=== PATIENT | male | born 1960 | race Caucasian/White ===

== ENCOUNTER 2018-04-07 09:18 | Observation (INO) | payer OTHER, SELFPAY ==
[2018-03-31 10:08] VITALS: BP 137/84; PULSE 61; RESP 18; TEMP 36.4; O2SAT 94; BMI 36.2
--- NOTE | 2018-03-31 10:10 | EKG12_ITS ---
Test Reason : Blood Pressure : / mmHG Vent. Rate : 042 BPM Atrial Rate : 042 BPM P-R Int : 164 ms QRS Dur : 108 ms QT Int : 432 ms P-R-T Axes : 054 033 033 degrees QTc Int : 360 ms Marked sinus bradycardia Abnormal ECG Confirmed by BRODERICK RIZO, MARIE ([id number]), order editor JOHN WARE ([id number]) on 04/05/2018 2:58:14 PM Referred By: Rakesh Finley Confirmed By:MARIE VILLAFANA MD
[2018-03-31 11:18] LABS: Absolute Lymphocyte Count 1.89 X10^3/ul (0.83-4.51); Absolute Neutrophil Count 3.9 X10^3/uL (2.0-7.7); Basophil# 0.03 X10^3/uL; Basophil% 0.5 % (0-1); Eosinophil# 0.25 X10^3/uL; Eosinophils% 3.8 % (0-5); Hematocrit 47.7 % (40-54); Hemoglobin 16.4 g/dl (13.0-16.5); Lymphocyte # 1.89 X10^3/ul (4.0); Lymphocyte % 28.9 % (19-41); Mean Corp Hgb Conc 34.4 g/gl (32-36); Mean Platelet Vol. 10.8 fl (6.2-12.0); Monocyte# 0.43 X10^3/uL; Monocyte% 6.6 % (0-10); Neutrophil # 3.94 X10^3/uL (2.7-7.7); POSITIVE COUNT NO; POSITIVE DIFFERENTIAL NO; POSITIVE MORPHOLOGY NO; Platelet Count 152 K/mm3 (150-450); RBC Distribution Width CV 12.9 % (11.6-14.6); RBC Distribution Width SD 44.4 fl (35.1-43.9); Red Blood Count 4.97 M/mm3 (4.6-6.2); White Blood Count 6.6 K/mm3 (4.4-11.0)
[2018-03-31 11:41] LABS: Phosphorus 3.4 mg/dL (2.5-4.9)
[2018-03-31 11:48] LABS: Anion Gap 4 (5-15); BUN 16 mg/dL (7-18); BUN/Creat Ratio 16.9 RATIO (10-20); Calcium,Total 9.3 mg/dL (8.5-10.1); Chloride 103 mmol/L (98-107); Creatinine, Serum 0.95 mg/dL (0.70-1.30); EST Glomerular Filtration Rate 87 mL/min (>60); Est Glom Filt Rate - Afr Amer 105 mL/min (>60); Estimated Creatinine Clearance 91.37 ml/min; Glucose 103 mg/dL (74-106); Potassium 4.8 mmol/L (3.5-5.1); Sodium Level 138 mmol/L (136-145); Thyroid Stim Hormone (TSH) 1.97 uIU/mL (0.358-3.74)
[2018-04-07] VITALS (10 sets, daily range): BP systolic 125–133; BP diastolic 73–96; PULSE 53–74; RESP 14–18; TEMP 35.9–37.2; O2SAT 94–98; BMI 36.2
--- NOTE | 2018-04-07 | IMM_PTH ---
PATIENT: KARTHIKEYAN CLARK LOC: MS2 U#:[id number] AGE/SX: 58/M ROOM: [id number] RE04/07/[address]: Dr. Rakesh Finley MD : 1960 BED: 1 DIS: 04/07/2018 SPEC #: [id number] RECD: 04/11/18 12:16 STATUS: NATASHA REQ #: [id number] TUAN: 04/07/18 00:[address]: Rakesh Finley DEPT: IMMUNOHISTOCHEMISTRY RECD BY: Sheila Mendez ENTERED: 04/11/18 12:17 SP TYPE: IMMUNO OTHR DR: Dr. Vj White MD Tissues: Thyroid gland, NOS Procedures: HBME (initial) CD56 (add) CK19 (add) GAL-3 (add) HBME (add) PHYSICIAN & INSTITUTION [place] [id number] SPECIMEN INFORMATION: Tissue Source: Total thyroid Clinical Info: Left thyroid mass Specimen Number: [id number] #3 & 5 CPT code: 00086, 45792 x7 METHODOLOGY: Deparaffinized sections of prefer/formalin-fixed tissue or PAP/DQ stained slides are incubated with monoclonal/polyclonal antibodies/oligonucleotide probes. Localization is made via biotin free immunoperoxidase method. Appropriate controls are performed and reacted as expected. Results on target cell population are indicated in the following table: RESULTS: ANTIBODY / CLONE RESULT Block 3 HBME1 (HBME-1) positive CK19 (A53-B/A2.26) positive GAL3 (9C4) positive CD56 (123C3.D5) negative Block 5 HBME1 (HBME-1) positive CK19 (A53-B/A2.26) positive GAL3 (9C4) positive CD56 (123C3.D5) negative These tests were developed and their performance characteristics determined by [facility]. They may not have been cleared or approved by the U.S. Food and Drug Administration. The FDA has determined that such clearance or approval is not necessary. INTERPRETATION: Thyroid, total thyroidectomy: Right lobe of thyroid: Papillary microcarcinoma. Left lobe of thyroid: Papillary microcarcinoma. AM:joe 04/14/18 Case has been reviewed in consultation with Dr. Ibarra who concurs with the above diagnosis. IDC:[email or web address]
--- NOTE | 2018-04-07 07:15 | THYROID_PTH ---
PATIENT: KARTHIKEYAN CLARK LOC: MS2 U#:[id number] AGE/SX: 58/M ROOM: [id number] RE04/07/[address]: Dr. Rakesh Finley MD : 1960 BED: 1 DIS: 04/07/2018 SPEC #: [id number] RECD: 04/07/18 10:51 STATUS: NATASHA PORTILLO #: [id number] TUAN: 04/07/18 07:[address]: Rakesh Finley DEPT: SURGICAL PATHOLOGY RECD BY: Karthikeyan León ENTERED: 04/07/18 12:11 SP TYPE: THYROID OTHR DR: Dr. Vj White MD Tissues: Thyroid gland, NOS Procedures: Surgery Specimen Level V HEADER OPERATION: Total thyroidectomy PRE-OP DIAGNOSIS: Left thyroid mass TISSUE SUBMITTED: Total thyroid ? suture in left lobe MICROSCOPIC DIAGNOSIS Thyroid, total thyroidectomy: Right lobe of thyroid: Colloid nodules with adenomatous and degenerative change. Incidental papillary microcarcinoma (3.3 mm in greatest dimension). Two out of two lymph nodes with no pathologic change. Left lobe of thyroid: Colloid nodules with adenomatous and degenerative change. Incidental papillary microcarcinoma (2.4 mm in greatest dimension). AM:joe 04/14/18 COMMENT Papillary microcarcinomas with follicular architecture and classic cytomorphology are present in sections of the right lobe and the left lobe. Both microcarcinomas are contained with the thyroid parenchyma. No extension to the inked surgical margins is identified. There is no evidence of angiolymphatic invasion. Immunohistochemistry ([id number]) supports the above diagnosis. Case has been reviewed in consultation with Dr. Ibarra who concurs with the above diagnosis. IDC:SJ MICROSCOPIC DESCRIPTION Slides are reviewed. GROSS DESCRIPTION Received in fixative is one container labeled with the patient's name and designated total thyroid, suture in left lobe. The specimen consists of a total thyroidectomy specimen weighing 34 gm. The right lobe measures 3.5 x 1.5 x 1 cm. The left lobe measures 6 x 4 x 3.5 cm and the isthmus measures 1.5 x 0.5 x 0.3 cm. No external parathyroid tissue is identified. The specimen is inked as follows: anterior surface right lobe ? blue, isthmus ? yellow and left lobe ? green, posterior surface right lobe, left lobe and isthmus ? black. Sections of the isthmus do not reveal any mass lesion. Sections of the right lobe reveal a minute bernstein-white nodule in the lower portion measuring 0.1 cm in greatest dimension. Sections of the left lobe reveal a bernstein, focally hemorrhagic nodule occupying 90% of the lobe measuring 5 x 4 x 3 cm. A focal area of calcification is also noted. No distinct capsule is identified around this nodule. Software Architect sections are submitted as follows: 1 ? isthmus, 2 & 3 ? right lobe (2 containing superior half of the right lobe and 3 containing inferior half of the right lobe, 4-12 ? left lobe (4 containing most superior portion and 12 containing most inferior portion; cassettes 10 & 11 contain the calcified portion of the nodule and submitted after decalcification.) / ZACKERY:joe 04/08/18 TC:0 CPT: 62338
--- NOTE | 2018-04-07 07:18 | PCM.DC.GS ---
Discharge Diet: Light diet - advance as tolerated - if you have questions about your diet instructions, please talk to you doctor. Discharge Activity: May Not Drive - for 1 week or while taking narcotic pain medicine. May shower in (days): 1 Lifting Restrictions: 10 pounds Call your doctor if your incision/area has: Continuous Slow Oozing, Sudden Increased Bleeding, Increased Pain/ Swelling, Increased Redness, Foul Smelling Discharge Call your doctor if you observe: Fever of 101 or Higher Suture Line Care: Avoid Pulling/Pushing, Avoid Pinching/Bending Additional Dressing/Incision Instructions:: You may cover the incision with a gauze dressing to protect from irritation or clothing. The surgical glue will wear off over 1-2 weeks. Allergies/Adverse Reactions: Allergies codeine Adverse Reaction (Verified 04/07/18 05:58) swelling in hands Medications to take at Discharge aspirin 81 mg tablet,delayed release 81 mg PO QHS 02/28/18 cetirizine 10 mg capsule 10 mg PO QDAY 02/28/18 losartan 100 mg-hydrochlorothiazide 12.5 mg tablet 1 tab PO QDAY 02/28/18 minocycline 100 mg capsule 100 mg PO BID 02/28/18 Red Yeast Rice 600 mg PO BID 03/31/18 Saw/Vit E/Sod Whitney/Lyc/Beta/Pyg [Prostate Health Caplet] 1 each PO BID 03/31/18 Hydrocodone Bitart/Apap 5-325 [[place] 5MG-325MG] 1 tablet PO Q4H PRN PRN 3 Days #8 tablet 04/07/18 Levothyroxine [Synthroid] 100 mcg PO DAILY #90 tab 04/07/18 The following prescriptions were given: Hydrocodone Bitart/Apap 5-325 [[place] 5MG-325MG] 1 tablet PO Q4H PRN PRN 3 Days #8 tablet PRN Reason: Pain Levothyroxine [Synthroid] 100 mcg PO DAILY #90 tab Primary Care Physician: Vj White MD [Primary Care Provider] - Test Results: Test results from this visit will be discussed in further detail at your follow-up appointment, if applicable. Please Follow Up With: Rakesh Finley MD - [phone] When: Call to make an appointment to be seen in about 10 days.
[2018-04-07] MEDS: Ondansetron 4 MG/2 ML Vial (07:45)
[2018-04-07] MEDS: Bupivacaine Mpf 0.5% 30 ML VIAL OPERA.SITE (09:10)
--- NOTE | 2018-04-07 09:24 | PCM.OPRPT ---
Problem List (1) Left thyroid nodule Status: Acute Report of Operation Date of Procedure: 04/07/18 Pre-Operative Diagnosis: Left thyroid mass Post-Operative Diagnosis: Left thyroid mass Surgery/Procedure Performed:: Total thyroidectomy Description of Surgical Findings:: Timeout and informed consent was obtained. 58-year-old gentleman was taken the operating placement table underwent general endotracheal intubation anesthesia. The neck was carefully supported. The neck was sterilely prepped and draped. A suprasternal transverse incision was created. Electrocautery was used to make dissected down through the substance tissue. Platysmal flaps are raised. Strap muscles on the left were transected with harmonic scalpel. This gave visualization to the dramatically enlarged left lobe of thyroid. Dissection was initiated superiorly as this gave best visualization. Using careful blunt dissection with hemostats and mosquitoes and Harmonic Scalpel I dissected free the superior pole. This actually proceeded quite expeditiously. Vessels were secured with hemoclips antibiotic scalpel indicated. Then I addressed the inferior pole. The inferior parathyroid rapidly identified and protected. The gland could then be rotated anteriorly in the middle thyroidal vein was secured. This then allowed me to completely rotate the gland dissect directly on the posterior aspect of the gland. The course of the recurrent laryngeal nerve was identified and carefully protected. Informed over the very tight ligament of Wilcox as it was transected and the gland was lifted off the anterior surface of the trachea. Hemostasis was very nicely intact all structures appear to be intact. Inspection I was performed of the right lobe of thyroid which is markedly diminutive. It is of note that the thyroid had a diffusely abnormal coloration to it a darker brown to almost black. It appeared to have a fluctuant fluid like character but there is no fluid that emanated. There is no evidence of any adenopathy that could be palpated or visualized. The right lobe was markedly diminished. Again the superior pole was rapidly identified and easily dissected free. The parathyroid inferiorly on the right is identified and protected the inferior pole was dissected free the gland was dissected anteriorly and it became very apparent that the right lobe was very diminutive in size. I was able to easily see the ligament of Wilcox transect this and elevate that gland off of the anterior surface of the trachea. Suture was placed in the superior aspect of the left lobe. There is no evidence of adherent parathyroids. The neck now was again carefully inspected. I did not see any remnants of any thyroid nor any gross adenopathy. Fibular was placed in each side of the neck. Left strap muscles approximated [id number] sutures of 3-0 Vicryl. The strap muscles proximally midline with 3-0 Vicryl. The Pitocin was approximately the same. The skin edges proximate interrupted 5-0 Vicryl subdermal stitches. The leni-incisional no areas anesthetized with 10 cc of 0.5% Marcaine. Surgical glue was applied followed by Telfa and tape dressings. Sponge and instrument and needle count were reported to the surgeon be correct. Blood loss was minimal. He tolerated the procedure well was taken to the recovery area in satisfactory condition without apparent complication. Specimen includes total thyroid. Drains none. Blood loss minimal. Rakesh Finley M.D., F.A.C.S. Type of Anesthesia:: General Anesthesiologist: Chicho Flores
[2018-04-07] MEDS: Morphine 2 MG/ML Syringe IV ×2 (11:55→13:50)
[2018-04-07] MEDS: HYDROcodone Bitartrate/Apap 5/325 Tablet PO (15:38)
--- NOTE | 2018-04-07 17:12 | PCM.PN.SRG ---
Subjective: Pt notes some slight hematuria There was no anticoagulation and no bladder intervention Voice strong and clear - Physical Exam HEENT: - - neck: supple, NT Vital Signs Temp Pulse Resp BP Pulse Ox 99.0 F 72 18 125/73 H 98 04/07/18 15:53 04/07/18 15:53 04/07/18 15:53 04/07/18 15:53 04/07/18 15:53 Oxygen Flow Rate (L/min) 2 Oxygen Delivery Method Room Air Weight: 259 lb 14.8 oz Body Mass Index (BMI) 36.2 Intake and Output for Last 24 Hours 04/05/18 04/06/18 04/07/18 23:59 23:59 23:59 Intake Total 2200 / 2200 Output Total 275 / 275 Balance 1925 / 1925 Laboratory Tests Past 24 Hrs 04/07/18 15:56 Calcium 9.0 Medical Necessity - Tobacco Use Smoking Status: Current some day smoker Assessment/Plan All Active Problems (Last Reviewed 03/31/18 @ 08:53 by Marta Segura) Left thyroid nodule (Acute) Hx of colonoscopy (Acute) Hx of wisdom tooth extraction (Acute) Hx of vasectomy (Acute) Mixed hyperlipidemia (Acute) Thyromegaly (Acute) Hypothyroidism (Acute) Calcium 9.0 Ready for discharge Will check UA for unrelated complaint to surgery Pt ready for discharge.
[2018-04-07 18:02] LABS: Color, Urine Yellow (Yellow); Glucose, Dipstick Normal (Normal); Ketone-Dipstick 5 mg/dl (Negative); Leukocyte Esterase-Dipstick 25 /ul (Negative); Nitrite-Dipstick Negative (Negative); Occult Blood-Urine 250 /ul (Negative); Protein-Dipstick 15 mg/dl (Negative); Specific Gravity, Urine 1.025 (1.002-1.030); Urine Bilirubin Dipstick Negative (Negative); Urine Clarity Sl. Cloudy (Clear); Urine Urobilinogen Normal (Normal)
== END 2018-04-07 18:02 | disposition home or self-care (01) ==
LOC: MS2 04-12 10:23
PROVIDERS: Anesthesiology; Admitting Provider Surgery; Family Provider Family Medicine; PCP Family Medicine; Visit Provider Surgery
PROC: (CPT 60240; principal; 2018-04-07 07:00)
DX: C73 Malignant neoplasm of thyroid gland (principal); E78.2 Mixed hyperlipidemia; E03.9 Hypothyroidism, unspecified; K21.9 Gastro-esophageal reflux disease without esophagitis; Z79.899 Other long term (current) drug therapy; Z79.82 Long term (current) use of aspirin; R00.1 Bradycardia, unspecified; I10 Essential (primary) hypertension; F17.200 Nicotine dependence, unspecified, uncomplicated
CPT/HCPCS: 60240; 36415; 80048; 81002; 82310; 84100; 84443; 85025; 88307; 88341; 88342; 93005; 96374; 96376; 99218; J7120; G0378; G0379; J2405

== ENCOUNTER → 2018-04-15 13:56 | Outpatient (CLI) | payer OTHER, SELFPAY ==
[2018-04-15 14:01] LABS: Bacteria 0 SEEN /hpf (None Seen); Mucous, Urine 0 SEEN /hpf (<or=2+); Red Blood Cells-Urine 0 SEEN /hpf (0-5); Squamous Epithelial Cells - UA 0 SEEN /hpf (0-5); White Blood Cells 0 SEEN /hpf (0-5)
[2018-04-15 15:06] LABS: Color, Urine Yellow (Yellow); Glucose, Dipstick Normal (Normal); Ketone-Dipstick Negative (Negative); Leukocyte Esterase-Dipstick 25 /ul (Negative); Nitrite-Dipstick Negative (Negative); Occult Blood-Urine Negative /ul (Negative); Protein-Dipstick Negative (Negative); Specific Gravity, Urine 1.015 (1.002-1.030); Urine Bilirubin Dipstick Negative (Negative); Urine Clarity Clear (Clear); Urine Urobilinogen Normal (Normal)
== END ==
PROVIDERS: Family Provider Family Medicine; PCP Family Medicine; Visit Provider Surgery
DX: R31.9 Hematuria, unspecified (principal)
CPT/HCPCS: 81001

== ENCOUNTER → 2018-04-18 13:29 | Outpatient (CLI) | payer OTHER, SELFPAY ==
[2018-04-18 14:29] LABS: Calcium,Total 9.5 mg/dL (8.5-10.1)
[2018-04-20 11:55] LABS: Anti-Thyroglobulin AB < 1.0 IU/mL (0.0-0.9)
== END ==
PROVIDERS: Physician Assistant; Family Provider Family Medicine; PCP Family Medicine; Visit Provider Surgery
DX: E03.9 Hypothyroidism, unspecified (principal)
CPT/HCPCS: 36415; 82310; 84432; 86800

== ENCOUNTER → 2018-05-19 14:06 | Outpatient (CLI) | payer OTHER, SELFPAY | PROVIDERS: Family Provider Family Medicine; PCP Family Medicine; Visit Provider Physician Assistant | DX: C73 Malignant neoplasm of thyroid gland (principal) | CPT/HCPCS: 36415; 84443 ==

== ENCOUNTER → 2018-07-06 14:43 | Outpatient (CLI) | payer OTHER, SELFPAY ==
[2018-07-06 16:06] LABS: Free T3 3.1 pg/mL (2.18-3.98); Thyroid Stim Hormone (TSH) 1.63 uIU/mL (0.358-3.74)
[2018-07-11 12:01] LABS: Anti-Thyroglobulin AB < 1.0 IU/mL (0.0-0.9); Thyroglobulin, Serum Qt. < 0.1 ng/mL (1.4-29.2); Thyroid Peroxidase AB 9 IU/mL (0-34)
== END ==
PROVIDERS: Family Provider Family Medicine; PCP Family Medicine; Referring Provider Internal Medicine Endocrinology, Diabetes & Metabolism; Visit Provider Internal Medicine Endocrinology, Diabetes & Metabolism
DX: E03.9 Hypothyroidism, unspecified (principal)
CPT/HCPCS: 36415; 84432; 84439; 84443; 84481; 86376; 86800

== ENCOUNTER → 2018-11-09 16:04 | Outpatient (CLI) | payer OTHER, SELFPAY ==
[2018-04-07 05:48] VITALS: BMI 36.2
== END ==
PROVIDERS: Family Provider Family Medicine; PCP Family Medicine; Referring Provider Internal Medicine Endocrinology, Diabetes & Metabolism; Visit Provider Internal Medicine Endocrinology, Diabetes & Metabolism
DX: E03.9 Hypothyroidism, unspecified (principal)
CPT/HCPCS: 36415; 84443

== ENCOUNTER → 2019-01-10 09:52 | Outpatient (CLI) | payer OTHER, SELFPAY ==
[2018-04-07 05:48] VITALS: BMI 36.2
[2019-01-10 11:04] LABS: Hemoglobin A1c 5.6 % (4.2-6.3)
[2019-01-10 11:22] LABS: ALB/GLOB Ratio 1.1 RATIO (0.9-2.4); AST(SGOT) 24 U/L (15-37); Alanine Aminotransfer ALT/SGPT 39 U/L (16-61); Albumin, Serum 3.7 g/dL (3.2-5.0); Alkaline Phosphatase 52 U/L (45-117); Anion Gap 9 (5-15); BUN 20 mg/dL (7-18); Chloride 104 mmol/L (98-107); Cholesterol 188 mg/dL (200); EST Glomerular Filtration Rate 82 mL/min (>60); Est Glom Filt Rate - Afr Amer 99 mL/min (>60); Globulin 3.3 g/dL (2.2-4.2); Glucose 105 mg/dL (74-106); High Density Lipoprotein 51 mg/dL; Potassium 3.8 mmol/L (3.5-5.1); Sodium Level 139 mmol/L (136-145); Thyroid Stim Hormone (TSH) 7.67 uIU/mL (0.358-3.74); Triglycerides 107 mg/dL; Very Low Density Lipoprotein 21 mg/dL (5-40)
[2019-01-10 12:09] LABS: Microalbumin,Random Urine 7.6 mg/L (NO RANGE EST.)
== END ==
PROVIDERS: Family Provider Family Medicine; PCP Family Medicine; Referring Provider Family Medicine; Visit Provider Family Medicine
DX: I10 Essential (primary) hypertension (principal); R73.01 Impaired fasting glucose; E03.9 Hypothyroidism, unspecified; E78.2 Mixed hyperlipidemia
CPT/HCPCS: 36415; 80053; 80061; 82043; 83036; 84443

== ENCOUNTER → 2019-05-25 11:13 | Outpatient (CLI) | payer OTHER, SELFPAY ==
[2018-04-07 05:48] VITALS: BMI 36.2
[2019-05-25 12:18] LABS: T4 Free Direct 1.36 ng/dL (0.76-1.46); Thyroid Stim Hormone (TSH) 0.85 uIU/mL (0.358-3.74)
== END ==
PROVIDERS: Family Provider Family Medicine; PCP Family Medicine; Referring Provider Family Medicine; Visit Provider Family Medicine
DX: E03.9 Hypothyroidism, unspecified (principal)
CPT/HCPCS: 36415; 84439; 84443

== ENCOUNTER → 2019-12-26 10:21 | Outpatient (CLI) | payer OTHER, SELFPAY ==
[2018-04-07 05:48] VITALS: BMI 36.2
[2019-12-26 11:34] LABS: ALB/GLOB Ratio 1.2 RATIO (0.9-2.4); AST(SGOT) 25 U/L (15-37); Alanine Aminotransfer ALT/SGPT 37 U/L (16-61); Albumin, Serum 3.8 g/dL (3.2-5.0); Alkaline Phosphatase 54 U/L (45-117); Anion Gap 4 (5-15); BUN 13 mg/dL (7-18); BUN/Creat Ratio 12.4 RATIO (10-20); Calcium,Total 9.4 mg/dL (8.5-10.1); Chloride 106 mmol/L (98-107); Cholesterol 189 mg/dL (200); Creatinine, Serum 1.05 mg/dL (0.70-1.30); EST Glomerular Filtration Rate 77 mL/min (>60); Est Glom Filt Rate - Afr Amer 93 mL/min (>60); Globulin 3.2 g/dL (2.2-4.2); Glucose 105 mg/dL (74-106); High Density Lipoprotein 47 mg/dL; Potassium 3.9 mmol/L (3.5-5.1); Sodium Level 139 mmol/L (136-145); T4 Free Direct 1.24 ng/dL (0.76-1.46); Thyroid Stim Hormone (TSH) 0.49 uIU/mL (0.358-3.74); Triglycerides 119 mg/dL; Very Low Density Lipoprotein 24 mg/dL (5-40)
== END ==
PROVIDERS: PCP Family Medicine; Referring Provider Family Medicine; Visit Provider Family Medicine
DX: E03.9 Hypothyroidism, unspecified (principal); I10 Essential (primary) hypertension; F51.04 Psychophysiologic insomnia; E78.2 Mixed hyperlipidemia
CPT/HCPCS: 36415; 80053; 80061; 84439; 84443

== ENCOUNTER → 2020-07-10 15:12 | Outpatient (CLI) | payer OTHER, SELFPAY ==
[2018-04-07 05:48] VITALS: BMI 36.2
[2020-07-10 16:24] LABS: ALB/GLOB Ratio 1.1 RATIO (0.9-2.4); AST(SGOT) 31 U/L (15-37); Alanine Aminotransfer ALT/SGPT 46 U/L (16-61); Albumin, Serum 3.7 g/dL (3.2-5.0); Alkaline Phosphatase 54 U/L (45-117); Anion Gap 6 (5-15); BUN 16 mg/dL (7-18); BUN/Creat Ratio 17.1 RATIO (10-20); Calcium,Total 9.1 mg/dL (8.5-10.1); Chloride 104 mmol/L (98-107); Cholesterol 191 mg/dL (200); Creatinine, Serum 0.93 mg/dL (0.70-1.30); EST Glomerular Filtration Rate 88 mL/min (>60); Est Glom Filt Rate - Afr Amer 106 mL/min (>60); Globulin 3.3 g/dL (2.2-4.2); Glucose 94 mg/dL (74-106); High Density Lipoprotein 50 mg/dL; Sodium Level 138 mmol/L (136-145); Triglycerides 139 mg/dL; Very Low Density Lipoprotein 28 mg/dL (5-40)
== END ==
PROVIDERS: PCP Family Medicine; Visit Provider Family Medicine
DX: E03.9 Hypothyroidism, unspecified (principal); E78.2 Mixed hyperlipidemia; I10 Essential (primary) hypertension; F51.04 Psychophysiologic insomnia
CPT/HCPCS: 36415; 80053; 80061

== ENCOUNTER → 2021-01-08 10:39 | Outpatient (CLI) | payer OTHER, SELFPAY ==
[2018-04-07 05:48] VITALS: BMI 36.2
[2021-01-08 12:01] LABS: Hemoglobin A1c 5.6 % (3.8-5.6)
[2021-01-08 12:17] LABS: ALB/GLOB Ratio 1.1 RATIO (0.9-2.4); AST(SGOT) 28 U/L (15-37); Alanine Aminotransfer ALT/SGPT 59 U/L (16-61); Albumin, Serum 3.6 g/dL (3.2-5.0); Alkaline Phosphatase 47 U/L (45-117); Anion Gap 4 (5-15); BUN 14 mg/dL (7-18); BUN/Creat Ratio 14.4 RATIO (10-20); Chloride 107 mmol/L (98-107); Cholesterol 171 mg/dL (200); Creatinine, Serum 0.98 mg/dL (0.70-1.30); EST Glomerular Filtration Rate 84 mL/min (>60); Est Glom Filt Rate - Afr Amer 101 mL/min (>60); Globulin 3.3 g/dL (2.2-4.2); Glucose 108 mg/dL (74-106); High Density Lipoprotein 42 mg/dL; PSA,Total - Annual Screen 2.35 ng/mL (0.00-4.00); Potassium 3.9 mmol/L (3.5-5.1); Protein, Total 6.9 g/dL (6.4-8.2); Sodium Level 141 mmol/L (136-145); T4 Free Direct 1.27 ng/dL (0.76-1.46); Thyroid Stim Hormone (TSH) 2.25 uIU/mL (0.358-3.74); Triglycerides 119 mg/dL; Very Low Density Lipoprotein 24 mg/dL (5-40)
== END ==
PROVIDERS: PCP Family Medicine; Referring Provider Family Medicine; Visit Provider Family Medicine
DX: I10 Essential (primary) hypertension (principal); F51.04 Psychophysiologic insomnia; E03.9 Hypothyroidism, unspecified; E78.2 Mixed hyperlipidemia; L81.9 Disorder of pigmentation, unspecified
CPT/HCPCS: 80053; 80061; 83036; 84153; 84439; 84443; G0103

== ENCOUNTER → 2021-07-14 09:02 | Outpatient (CLI) | payer OTHER, SELFPAY ==
[2021-07-14 10:29] LABS: Hemoglobin A1c 5.7 % (3.8-5.6)
[2021-07-14 10:45] LABS: ALB/GLOB Ratio 0.8 RATIO (0.9-2.4); AST(SGOT) 29 U/L (15-37); Alanine Aminotransfer ALT/SGPT 67 U/L (16-61); Albumin, Serum 3.1 g/dL (3.2-5.0); Alkaline Phosphatase 53 U/L (45-117); Anion Gap 4 (5-15); BUN 12 mg/dL (7-18); Calcium,Total 9.2 mg/dL (8.5-10.1); Chloride 107 mmol/L (98-107); Cholesterol 202 mg/dL (200); Creatinine, Serum 0.92 mg/dL (0.70-1.30); EST Glomerular Filtration Rate 89 mL/min (>60); Est Glom Filt Rate - Afr Amer 107 mL/min (>60); Glucose 104 mg/dL (74-106); High Density Lipoprotein 37 mg/dL; Potassium 4.2 mmol/L (3.5-5.1); Protein, Total 7.1 g/dL (6.4-8.2); Sodium Level 138 mmol/L (136-145); T4 Free Direct 1.18 ng/dL (0.76-1.46); Triglycerides 120 mg/dL; Very Low Density Lipoprotein 24 mg/dL (5-40)
== END ==
PROVIDERS: PCP Family Medicine; Referring Provider Family Medicine; Visit Provider Family Medicine
DX: I10 Essential (primary) hypertension (principal); E03.9 Hypothyroidism, unspecified; R73.01 Impaired fasting glucose; M25.551 Pain in right hip; M25.561 Pain in right knee
CPT/HCPCS: 36415; 80053; 80061; 83036; 84439

== ENCOUNTER → 2022-01-08 | Outpatient (CLI) | payer OTHER, SELFPAY ==
[2022-01-08 15:22] LABS: Hemoglobin A1c 5.6 % (3.8-5.6)
[2022-01-08 15:42] LABS: ALB/GLOB Ratio 1.2 RATIO (0.9-2.4); AST(SGOT) 29 U/L (15-37); Alanine Aminotransfer ALT/SGPT 51 U/L (16-61); Albumin, Serum 3.8 g/dL (3.2-5.0); Alkaline Phosphatase 43 U/L (45-117); Anion Gap 5 (5-15); BUN 11 mg/dL (7-18); BUN/Creat Ratio 12.1 RATIO (10-20); Calcium,Total 9.4 mg/dL (8.5-10.1); Chloride 107 mmol/L (98-107); Cholesterol 182 mg/dL (200); Creatinine, Serum 0.91 mg/dL (0.70-1.30); EST Glomerular Filtration Rate 91 mL/min (>60); Est Glom Filt Rate - Afr Amer 110 mL/min (>60); Globulin 3.3 g/dL (2.2-4.2); Glucose 105 mg/dL (74-106); High Density Lipoprotein 43 mg/dL; Potassium 3.8 mmol/L (3.5-5.1); Protein, Total 7.1 g/dL (6.4-8.2); Sodium Level 139 mmol/L (136-145); Triglycerides 87 mg/dL; Very Low Density Lipoprotein 17 mg/dL (5-40)
[2022-01-13 15:08] LABS: T4 Free Direct 1.33 ng/dL (0.76-1.46); Thyroid Stim Hormone (TSH) 1.55 uIU/mL (0.358-3.74)
== END | disposition home or self-care (01) ==
LOC: LAB 13:47
PROVIDERS: PCP Family Medicine; Referring Provider Family Medicine; Visit Provider Family Medicine
DX: N40.0 Benign prostatic hyperplasia without lower urinary tract symptoms (principal); I10 Essential (primary) hypertension; E03.9 Hypothyroidism, unspecified; F51.04 Psychophysiologic insomnia
CPT/HCPCS: 36415; 80053; 80061; 83036; 84439; 84443

== ENCOUNTER → 2022-07-13 | Outpatient (CLI) | payer OTHER, SELFPAY ==
[2022-07-13 12:50] LABS: ALB/GLOB Ratio 1.1 RATIO (0.9-2.4); AST(SGOT) 23 U/L (15-37); Alanine Aminotransfer ALT/SGPT 48 U/L (16-61); Albumin, Serum 3.7 g/dL (3.2-5.0); Alkaline Phosphatase 44 U/L (45-117); Anion Gap 5 (5-15); BUN 13 mg/dL (7-18); BUN/Creat Ratio 14.1 RATIO (10-20); Calcium,Total 9.1 mg/dL (8.5-10.1); Chloride 106 mmol/L (98-107); Cholesterol 189 mg/dL (200); Creatinine, Serum 0.92 mg/dL (0.70-1.30); EST Glomerular Filtration Rate 89 mL/min (>60); Est Glom Filt Rate - Afr Amer 107 mL/min (>60); Globulin 3.4 g/dL (2.2-4.2); Glucose 95 mg/dL (74-106); High Density Lipoprotein 47 mg/dL; Protein, Total 7.1 g/dL (6.4-8.2); Sodium Level 139 mmol/L (136-145); T4 Free Direct 1.29 ng/dL (0.76-1.46); Thyroid Stim Hormone (TSH) 3.92 uIU/mL (0.358-3.74); Triglycerides 82 mg/dL; Very Low Density Lipoprotein 16 mg/dL (5-40)
[2022-07-13 12:53] LABS: Hemoglobin A1c 5.6 % (3.8-5.6)
== END | disposition home or self-care (01) ==
LOC: LAB 10:40
PROVIDERS: PCP Family Medicine; Referring Provider Family Medicine; Visit Provider Family Medicine
DX: I10 Essential (primary) hypertension (principal); E78.2 Mixed hyperlipidemia; R73.01 Impaired fasting glucose; E03.9 Hypothyroidism, unspecified
CPT/HCPCS: 36415; 80053; 80061; 83036; 84153; 84439; 84443; G0103

== ENCOUNTER → 2023-01-06 | Outpatient (CLI) | payer OTHER, SELFPAY ==
[2023-01-06 12:39] LABS: ALB/GLOB Ratio 1.1 RATIO (0.9-2.4); AST(SGOT) 33 U/L (15-37); Alanine Aminotransfer ALT/SGPT 57 U/L (16-61); Albumin, Serum 3.6 g/dL (3.2-5.0); Alkaline Phosphatase 46 U/L (45-117); Anion Gap 4 (5-15); BUN 14 mg/dL (7-18); BUN/Creat Ratio 13.9 RATIO (10-20); Calcium,Total 9.4 mg/dL (8.5-10.1); Chloride 108 mmol/L (98-107); Cholesterol 177 mg/dL (200); Creatinine, Serum 1.01 mg/dL (0.70-1.30); EST Glomerular Filtration Rate 80 mL/min (>60); Est Glom Filt Rate - Afr Amer 96 mL/min (>60); Globulin 3.4 g/dL (2.2-4.2); Glucose 114 mg/dL (74-106); High Density Lipoprotein 40 mg/dL; PSA,Total- Diagnostic 3.84 ng/mL (0.0-4.0); Potassium 4.4 mmol/L (3.5-5.1); Sodium Level 139 mmol/L (136-145); T4 Free Direct 1.55 ng/dL (0.76-1.46); Thyroid Stim Hormone (TSH) 0.41 uIU/mL (0.358-3.74); Triglycerides 111 mg/dL; Very Low Density Lipoprotein 22 mg/dL (5-40)
== END | disposition home or self-care (01) ==
LOC: LAB 11:21
PROVIDERS: PCP Family Medicine; Referring Provider Registered Nurse; Visit Provider Registered Nurse
DX: I10 Essential (primary) hypertension (principal); N40.0 Benign prostatic hyperplasia without lower urinary tract symptoms; E78.2 Mixed hyperlipidemia; E03.9 Hypothyroidism, unspecified; R97.20 Elevated prostate specific antigen [PSA]
CPT/HCPCS: 36415; 80053; 80061; 84153; 84439; 84443

== ENCOUNTER 2023-05-19 04:40 | Emergency (ER) | payer OTHER, SELFPAY ==
[2023-05-19 04:40] VITALS: BP 171/86; PULSE 62; RESP 16; TEMP 35.8; O2SAT 97; BMI 37.9
--- NOTE | 2023-05-19 04:47 | CT_ITS ---
EXAM: CT ABDOMEN AND PELVIS WITHOUT INTRAVENOUS CONTRAST CLINICAL INDICATION: left abd pain left abd pain TECHNIQUE: Helically acquired images were obtained of the abdomen and pelvis without intravenous contrast. This CT exam was performed using one or more of the following dose reduction techniques: automated exposure control, adjustment of the mA and/or kV according to patient size, and/or use of iterative reconstruction technique. RADIATION DOSE: CTDIvol = 20.20 mGy, DLP = 1095.42 mGy-cm COMPARISON: No relevant prior studies available. FINDINGS: LOWER THORAX: Unremarkable. Lung bases are clear. No cardiomegaly. No significant pericardial effusion. ABDOMEN: LIVER: Unremarkable. Homogeneous. GALLBLADDER AND BILE DUCTS: Unremarkable. No calcified gallstones. No gallbladder distention or wall edema. No intra- or extrahepatic biliary ductal dilation. PANCREAS: Unremarkable. No focal cystic mass. SPLEEN: Unremarkable. Normal size without focal cystic or solid mass. ADRENALS: Unremarkable. No nodules. KIDNEYS AND URETERS: As seen on axial images 108-110, there is a 5.5 mm wide mid left ureteral calculus at the L5-S1 level. There is associated mild left hydronephrosis and left perinephric fat infiltration. Normal renal size and position. STOMACH AND BOWEL: There are colonic diverticula. There is no evidence for acute diverticulitis. No stomach or bowel distention. PELVIS: APPENDIX: A normal appendix is seen on axial images 128-143. BLADDER: There is diffuse mural thickening of the urinary bladder, which may represent cystitis or muscular hypertrophy. Neoplastic infiltration cannot be excluded entirely. REPRODUCTIVE: The prostate gland is mildly enlarged. ABDOMEN and PELVIS: INTRAPERITONEAL SPACE: Unremarkable. No ascites or other fluid collection. No free air. BONES/JOINTS: There are multilevel degenerative changes in the visualized spine. No suspicious lytic or blastic abnormality. SOFT TISSUES: There is a lipoma in the left iliopsoas muscle, of no clinically significant. No discrete abdominal or pelvic wall hernia. VASCULATURE: Unremarkable. Abdominal aorta is non-dilated. LYMPH NODES: Unremarkable. No enlarged lymph nodes. CT/Abdomen/Pelvis without Cont IMPRESSION: 1. 5.5 mm wide mid left ureteral calculus at the L5-S1 level. There is associated mild left hydronephrosis. 2. Enlarged prostate. 3. Diffuse mural thickening of the urinary bladder. 4. Colonic diverticulosis. No evidence for acute diverticulitis. Electronically Signed: Alex Benjamin MD at 5:33 EDT ,
--- NOTE | 2023-05-19 04:48 | EX.ED.DYSGE1 ---
HPI History of Present Illness Chief Complaint: Abd Pain Informant: patient Onset/Context/Timing Onset: Days Narrative Narrative: Patient present secondary to left-sided abdominal pain. He points to the left mid upper abdomen as well as to the left CVA region. He states pain has been intermittent for the past 3 days but last night became more constant. He denies fever or chills. Pain does not seem to be affected with eating or with urination. No blood noted in his urine. [facility] Medical History (Updated 05/19/23 @ 05:[address] Radha Logan MD) Hypertension Hypothyroidism Left thyroid nodule Mixed hyperlipidemia Thyromegaly Home Medications aspirin 81 mg tablet,delayed release (Adult Low Dose Aspirin) 81 mg PO QHS 02/28/18 [History Last Taken 03/31/18] cetirizine 10 mg capsule (Zyrtec) 10 mg PO QDAY 02/28/18 [History Last Taken Unknown] losartan 100 mg-hydrochlorothiazide 12.5 mg tablet 1 tab PO QDAY 02/28/18 [History Last Taken Unknown] red yeast rice 600 mg capsule 600 mg PO BID 03/31/18 [History Last Taken Unknown] saw palm 160 mg-vit E 100 unit-selen 100 mpi-elvm-kcpbjs-pygeum tablet 1 ea PO BID 03/31/18 [History Last Taken Unknown] antiarthritic combination no.2 900 mg tablet (glucosamine-chondroitin) 900 mg PO BID 05/19/23 [History Last Taken Unknown] hydrocodone-acetaminophen 5-325mg 5mg-325mg 1 tab PO Q6H PRN PRN Pain 3 days #10 TABLETS 05/19/23 [Rx Last Taken Unknown] ibuprofen 600 mg tablet 600 mg PO Q8H PRN PRN pain #20 TABLETS 05/19/23 [Rx Last Taken Unknown] levothyroxine 175 mcg tablet (Synthroid) 175 mcg PO DAILY 05/19/23 [History Last Taken Unknown] omega 5-roz-uqc-fish oil 1,200 mg (144 mg-216 mg) capsule (Fish Oil) 1 cap PO DAILY 05/19/23 [History Last Taken Unknown] ondansetron 4 mg disintegrating tablet 4 mg PO Q8H PRN PRN Nausea #10 tabs 05/19/23 [Rx Last Taken Unknown] sildenafil 100 mg tablet 100 mg PO Q24H PRN sexual activity 05/19/23 [History Last Taken Unknown] tamsulosin 0.4 mg capsule (Flomax) 0.4 mg PO DAILY #10 caps 05/19/23 [Rx Last Taken Unknown] Allergy/AdvReac Type Severity Reaction Status Date / Time codeine AdvReac swelling Verified 05/19/23 04:40 in hands Family History Mother Hypertension Breast cancer Father CVA (cerebral vascular accident) Alzheimer disease Surgical History H/O total thyroidectomy Hx of colonoscopy Hx of vasectomy Hx of wisdom tooth extraction Social History Smoking Status: Former smoker second hand exposure: Yes alcohol intake: current substance use type: does not use caffeine: Yes what type of physical activity do you participate in: walking seatbelt use: always ROS ROS ED Constitutional Constitutional ED: Denies chills or fever(s) Eyes Eyes: Denies discharge from eye(s) ENT ENT ED: Denies discharge from eye(s) or rhinorrhea Cardiovascular Cardiovascular: Denies chest pain or palpitations Respiratory/Chest Respiratory/Chest: Denies cough or dyspnea Gastrointestinal Gastrointestinal: Reports abdominal pain; Denies diarrhea, nausea or vomiting Genitourinary Genitourinary ED: Reports difficulty urinating; Denies dysuria Musculoskeletal Musculoskeletal: Reports back pain; Denies extremity pain Integumentary Denies Abrasions or rash Neurologic Neurologic: Denies headache(s) or weakness Psychiatric Psychiatric: Denies anxiety or depression Allergic/Immunologic Allergic/Immunologic ED: Denies lip swelling or urticaria EXAM Physical Exam Const Vital Signs: 05/19/23 04:40 Temperature 96.4 F L Temperature Source Temporal Pulse Rate 62 Respiratory Rate 16 Blood Pressure 171/86 H Blood Pressure Mean 114 Pulse Ox 97 Positive well nourished and well developed General Appearance ED: well developed HEENT Reports moist mucous membranes Eyes EOMs intact bilaterally Chest Wall inspection of chest normal and palpation of chest normal Resp normal respiratory effort and clear to auscultation bilaterally Cardio regular rate and regular rhythm GI GI Narrative: Abdomen soft with no reproducible tenderness. No palpable hernias. Active bowel sounds are noted throughout. Back/Spine no CVA tenderness Extremity normal to inspection Neuro oriented x3 and no sensory deficits noted Sensorium / Orientation: alert Motor Exam: strength 5/5 throughout Psych mental status grossly normal Skin no rashes or lesions noted MDM MDM MDM Narrative Medical decision making narrative: IV line established. Patient given IV fluids and Toradol. Labwork obtained to evaluate for leukocytosis, anemia, and electrolyte derangement. Urinalysis obtained to evaluate for infection/hematuria. CT flank obtained to evaluate for possible kidney stone versus diverticulitis versus other acute abnormality. History & Record Review Discussion w/independent historian: Patient Additional record(s) reviewed:: Prior ED visit and Prior labs Lab Data Attestation: I reviewed the patient's lab results. Labs: Laboratory Results - last 24 hr 05/19/23 05/19/23 04:45 04:55 WBC 13.7 H RBC 5.02 Hgb 16.6 H Hct 48.6 MCV 96.8 H MCH 33.1 H MCHC 34.2 RDW Std Deviation 42.7 RDW Coeff of Linus 12.0 Plt Count 189 MPV 10.5 Immature Gran % (Auto) 0.500 Neut % (Auto) 85.7 H Lymph % (Auto) 8.7 L Carver % (Auto) 4.8 Eos % (Auto) 0.1 Baso % (Auto) 0.2 Absolute Neuts (auto) 11.7 H Absolute Lymphs (auto) 1.19 Nucleated RBC % 0 Sodium 139 Potassium 4.1 Chloride 105 Carbon Dioxide 27.0 Anion Gap 7 BUN 13 Creatinine 1.21 Estim Creat Clear Calc 67.42 Est GFR (MDRD) Af Amer 78 Est GFR (MDRD) Non-Af 65 BUN/Creatinine Ratio 10.7 Glucose 153 H Calcium 9.7 Urine Color Yellow Urine Clarity Sl. Cloudy Urine pH 6.0 Ur Specific [place] 1.020 Urine Protein 15 H Urine Glucose (UA) Normal Urine Ketones 15 H Urine Occult Blood 250 H Urine Nitrite Negative Urine Bilirubin Negative Urine Urobilinogen 1 H Ur Leukocyte Esterase 25 H Urine RBC > 100 SEEN Urine WBC 0-5 SEEN Ur Squamous Epith Cells 0-5 SEEN Urine Bacteria 1+ Urine Mucus 0 SEEN Radiography Diagnostic Testing: Clinical Impression(s) from Imaging Studies Abdomen/Pelvis CT 05/19/23 04:47 IMPRESSION: 1. 5.5 mm wide mid left ureteral calculus at the L5-S1 level. There is associated mild left hydronephrosis. 2. Enlarged prostate. 3. Diffuse mural thickening of the urinary bladder. 4. Colonic diverticulosis. No evidence for acute diverticulitis. Electronically Signed: Alex Benjamin MD at 5:33 EDT , Treatment and Re-Evaluation :: CBC was a white count of 13.7 with 85% neutrophils. Hemoglobin is concentrated at 16.6. Chemistry studies are unremarkable with a BUN of 13 and a creatinine of 1.21. Glucose is 153. Urinalysis does reveal greater than 100 red cells with 0-5 white cells and 1+ bacteria. CT scan of the flank reveals a 5.5 mid left ureteral calculus. There is mild left hydronephrosis. On repeat evaluation patient is resting more comfortably. Test results are discussed with him. He will be given prescriptions for ibuprofen, [place], Zofran, and Flomax. He is a known patient of Dr. Muñoz and will follow-up. He was given return instructions. Discharge Plan Triage Chief Complaint: Abd Pain ED Provider: Radha Logan Dx/Rx/DC Orders Clinical Impression: Ureterolithiasis Instructions: ED Kidney Stone w/ Colic Prescriptions: New ibuprofen 600 mg tablet 600 mg PO Q8H PRN PRN (Reason: pain) Qty: 20 0RF hydrocodone-acetaminophen 5-325 mg tablet 1 tab PO Q6H PRN PRN (Reason: Pain) 3 Days Qty: 10 0RF ondansetron 4 mg tablet,disintegrating 4 mg PO Q8H PRN PRN (Reason: Nausea) Qty: 10 0RF tamsulosin [Flomax] 0.4 mg capsule 0.4 mg PO DAILY Qty: 10 0RF No Action losartan-hydrochlorothiazide 100-12.5 mg tablet 1 tab PO QDAY aspirin [Adult Low Dose Aspirin] 81 mg tablet,delayed release (DR/EC) 81 mg PO QHS cetirizine [Zyrtec] 10 mg capsule 10 mg PO QDAY red yeast rice 600 MG capsule 600 mg PO BID saw-vit E-sod dls-irq-kpjo-pyg 1 EACH tablet 1 ea PO BID levothyroxine [Synthroid] 175 mcg tablet 175 mcg PO DAILY sildenafil 100 mg tablet 100 mg PO Q24H PRN (Reason: sexual activity) Patient Comments: take 1 tablet by mouth once daily if needed for ERECTILE DYSFUNCTION omega 1-npu-jgk-fish oil [Fish Oil] 1,200 (144-216) mg capsule 1 cap PO DAILY glucosamine-chondroitin 900 mg tablet 900 mg PO BID Primary Care Provider: Vj White Referrals: Lui Barkley MD [Med Staff - Active Staff] - 5-7 Days Vj White MD [Primary Care Provider] - Disposition Disposition: Home, Self Care
[2023-05-19 04:55] LABS: Absolute Lymphocyte Count 1.19 X10^3/uL (0.83-4.51); Absolute Neutrophil Count 11.7 X10^3/uL (2.0-7.7); Basophil# 0.03 X10^3/uL; Basophil% 0.2 % (0-1); Eosinophil# 0.01 X10^3/uL; Eosinophils% 0.1 % (0-5); Hematocrit 48.6 % (40-54); Hemoglobin 16.6 g/dL (13.0-16.5); Lymphocyte # 1.19 X10^3/ul (0.83-4.51); Lymphocyte % 8.7 % (19-41); Mean Corp Hgb Conc 34.2 g/dL (32-36); Mean Corpuscular Hgb 33.1 pg (27.0-32.0); Mean Corpuscular Volume 96.8 fL (80-94); Mean Platelet Vol. 10.5 fl (6.2-12.0); Monocyte# 0.65 X10^3/uL; Monocyte% 4.8 % (0-10); NRBC Flagged by Analyzer 0 % (0-5); Neutrophil % 85.7 % (47-70); Platelet Count 189 K/mm3 (150-450); RBC Distribution Width SD 42.7 fl (35.1-43.9); Red Blood Count 5.02 M/mm3 (4.6-6.2); White Blood Count 13.7 K/mm3 (4.4-11.0)
[2023-05-19] MEDS: 0.9% Normal Saline (1000mL) 1,000 ML 150 ML IV (05:06)
[2023-05-19] MEDS: Ketorolac 15 MG/ML Vial IV (05:06)
[2023-05-19 05:15] LABS: Mucous, Urine 0 SEEN /hpf (<or=2+)
[2023-05-19 05:20] LABS: Color, Urine Yellow (Yellow); Glucose, Dipstick Normal (Normal); Ketone-Dipstick 15 mg/dl (Negative); Leukocyte Esterase-Dipstick 25 /ul (Negative); Nitrite-Dipstick Negative (Negative); Occult Blood-Urine 250 /ul (Negative); Protein-Dipstick 15 mg/dl (Negative); Urine Bilirubin Dipstick Negative (Negative); Urine Clarity Sl. Cloudy (Clear); Urine Urobilinogen 1 mg/dl (Normal)
[2023-05-19 05:27] LABS: Anion Gap 7 (5-15); BUN 13 mg/dL (7-18); BUN/Creat Ratio 10.7 RATIO (10-20); Calcium,Total 9.7 mg/dL (8.5-10.1); Chloride 105 mmol/L (98-107); Creatinine, Serum 1.21 mg/dL (0.70-1.30); EST Glomerular Filtration Rate 65 mL/min (>60); Est Glom Filt Rate - Afr Amer 78 mL/min (>60); Estimated Creatinine Clearance 67.42 ml/min; Glucose 153 mg/dL (74-106); Potassium 4.1 mmol/L (3.5-5.1); Sodium Level 139 mmol/L (136-145)
[2023-05-19 05:35] LABS: Bacteria 1+ /hpf (None Seen); Red Blood Cells-Urine > 100 SEEN /hpf (0-5); Squamous Epithelial Cells - UA 0-5 SEEN /hpf (0-5); White Blood Cells 0-5 SEEN /hpf (0-5)
== END 2023-05-19 06:02 | disposition home or self-care (01) ==
PROVIDERS: Emergency Provider Emergency Medicine; PCP Family Medicine; Visit Provider Emergency Medicine
DX: N13.2 Hydronephrosis with renal and ureteral calculous obstruction (principal); I10 Essential (primary) hypertension; E78.2 Mixed hyperlipidemia; E03.9 Hypothyroidism, unspecified; Z79.82 Long term (current) use of aspirin; Z79.899 Other long term (current) drug therapy; Z86.73 Personal history of transient ischemic attack (TIA), and cerebral infarction without residual deficits; Z87.891 Personal history of nicotine dependence
CPT/HCPCS: 74176; 80048; 81001; 85025; 96361; 96374; 99283; J7030; A4216

== ENCOUNTER → 2023-06-01 | Outpatient (CLI) | payer OTHER, SELFPAY ==
--- NOTE | 2023-06-01 11:00 | RAD_ITS ---
STUDY: X-RAY - ABDOMEN/PELVIS REASON FOR EXAM: Male, 63 years old. CALCULUS OF URETER TECHNIQUE: KUB COMPARISON: May 19, 2023 FINDINGS: Normal visualized lung bases. There is an unremarkable bowel gas pattern. There is no demonstrated free abdominal air. The visualized liver, spleen and kidneys are grossly normal in size and morphology. Tiny calcific density noted in the pelvis to the left of midline which may represent known ureteral calculus which was previously noted more proximal in the left pelvic ureter Normal visualized osseous structures. RAD/Abdomen Single View IMPRESSION: Apparent interval progression of ureteral calculus more distally in the pelvis since prior exam. This may be confirmed with CAT scan if clinically warranted Electronically Signed: Viktor Andrews MD at 18:18 EDT ,
== END | disposition home or self-care (01) ==
LOC: LAB 10:49 → RAD 10:53
PROVIDERS: PCP Family Medicine; Referring Provider Urology; Visit Provider Urology
DX: N20.1 Calculus of ureter (principal)
CPT/HCPCS: 74018

== ENCOUNTER → 2023-06-15 | Outpatient (CLI) | payer OTHER, SELFPAY ==
[2023-06-23 14:44] LABS: Source Not Provided
== END | disposition home or self-care (01) ==
LOC: LABSPEC 15:14
PROVIDERS: PCP Family Medicine; Referring Provider Urology; Visit Provider Urology
DX: N20.1 Calculus of ureter (principal)
CPT/HCPCS: 82360

== ENCOUNTER → 2023-07-07 | Outpatient (CLI) | payer OTHER, SELFPAY ==
[2023-07-07 14:07] LABS: ALB/GLOB Ratio 1.1 RATIO (0.9-2.4); AST(SGOT) 25 U/L (15-37); Alanine Aminotransfer ALT/SGPT 58 U/L (16-61); Albumin, Serum 3.7 g/dL (3.2-5.0); Alkaline Phosphatase 49 U/L (45-117); Anion Gap 7 (5-15); BUN 11 mg/dL (7-18); BUN/Creat Ratio 11.3 RATIO (10-20); Calcium,Total 9.6 mg/dL (8.5-10.1); Chloride 105 mmol/L (98-107); Cholesterol 173 mg/dL (200); Creatinine, Serum 0.97 mg/dL (0.70-1.30); EST Glomerular Filtration Rate 83 mL/min (>60); Est Glom Filt Rate - Afr Amer 101 mL/min (>60); Free T3 2.8 pg/mL (2.18-3.98); Globulin 3.4 g/dL (2.2-4.2); Glucose 117 mg/dL (74-106); High Density Lipoprotein 47 mg/dL; PSA,Total- Diagnostic 4.36 ng/mL (0.0-4.0); Potassium 4.1 mmol/L (3.5-5.1); Protein, Total 7.1 g/dL (6.4-8.2); Sodium Level 142 mmol/L (136-145); T4 Free Direct 1.46 ng/dL (0.76-1.46); Thyroid Stim Hormone (TSH) 0.32 uIU/mL (0.358-3.74); Triglycerides 122 mg/dL; Very Low Density Lipoprotein 24 mg/dL (5-40)
[2023-07-07 14:19] LABS: Hemoglobin A1c 5.7 % (3.8-5.6)
== END | disposition home or self-care (01) ==
LOC: LAB 12:33
PROVIDERS: PCP Family Medicine; Referring Provider Family Medicine; Visit Provider Family Medicine
DX: I10 Essential (primary) hypertension (principal); F32.1 Major depressive disorder, single episode, moderate; E03.9 Hypothyroidism, unspecified; E78.2 Mixed hyperlipidemia; N52.9 Male erectile dysfunction, unspecified; R97.20 Elevated prostate specific antigen [PSA]
CPT/HCPCS: 36415; 80053; 80061; 83036; 84153; 84439; 84443; 84481

== ENCOUNTER → 2024-01-19 | Outpatient (CLI) | payer OTHER, SELFPAY ==
[2024-01-19 16:44] LABS: Hemoglobin A1c 5.5 % (3.8-5.6)
[2024-01-19 16:51] LABS: ALB/GLOB Ratio 1.2 RATIO (0.9-2.4); AST(SGOT) 23 U/L (15-37); Alanine Aminotransfer ALT/SGPT 45 U/L (16-61); Albumin, Serum 3.8 g/dL (3.2-5.0); Alkaline Phosphatase 46 U/L (45-117); Anion Gap 5 (5-15); BUN 11 mg/dL (7-18); BUN/Creat Ratio 11.3 RATIO (10-20); Calcium,Total 9.6 mg/dL (8.5-10.1); Chloride 105 mmol/L (98-107); Cholesterol 183 mg/dL (200); Creatinine, Serum 0.98 mg/dL (0.70-1.30); EST Glomerular Filtration Rate 82 mL/min (>60); Est Glom Filt Rate - Afr Amer 100 mL/min (>60); Globulin 3.3 g/dL (2.2-4.2); Glucose 98 mg/dL (74-106); High Density Lipoprotein 47 mg/dL; PSA,Total- Diagnostic 3.75 ng/mL (0.0-4.0); Potassium 3.7 mmol/L (3.5-5.1); Protein, Total 7.1 g/dL (6.4-8.2); Sodium Level 138 mmol/L (136-145); T4 Free Direct 1.43 ng/dL (0.76-1.46); Thyroid Stim Hormone (TSH) 2.57 uIU/mL (0.358-3.74); Triglycerides 134 mg/dL; Very Low Density Lipoprotein 27 mg/dL (5-40)
== END | disposition home or self-care (01) ==
PROVIDERS: PCP Family Medicine; Referring Provider Urology; Visit Provider Urology
DX: I10 Essential (primary) hypertension (principal); E03.9 Hypothyroidism, unspecified; E78.2 Mixed hyperlipidemia; R73.01 Impaired fasting glucose; R97.20 Elevated prostate specific antigen [PSA]
CPT/HCPCS: 36415; 80053; 80061; 83036; 84153; 84439; 84443

== ENCOUNTER → 2024-07-24 | Outpatient (CLI) | payer OTHER, SELFPAY ==
[2024-07-24 13:16] LABS: ALB/GLOB Ratio 1.2 RATIO (0.9-2.4); AST(SGOT) 24 U/L (15-37); Alanine Aminotransfer ALT/SGPT 45 U/L (16-61); Albumin, Serum 3.6 g/dL (3.2-5.0); Alkaline Phosphatase 44 U/L (45-117); Anion Gap 5 (5-15); BUN 14 mg/dL (7-18); BUN/Creat Ratio 14.8 RATIO (10-20); Calcium,Total 9.2 mg/dL (8.5-10.1); Chloride 104 mmol/L (98-107); Cholesterol 176 mg/dL (200); Creatinine, Serum 0.94 mg/dL (0.70-1.30); EST Glomerular Filtration Rate 86 mL/min (>60); Est Glom Filt Rate - Afr Amer 104 mL/min (>60); Globulin 3.1 g/dL (2.2-4.2); Glucose 111 mg/dL (74-106); High Density Lipoprotein 51 mg/dL; Potassium 3.9 mmol/L (3.5-5.1); Protein, Total 6.7 g/dL (6.4-8.2); Sodium Level 138 mmol/L (136-145); T4 Free Direct 1.42 ng/dL (0.76-1.46); Triglycerides 73 mg/dL; Very Low Density Lipoprotein 15 mg/dL (5-40)
[2024-07-24 13:52] LABS: Hemoglobin A1c 5.7 % (3.8-5.6)
== END | disposition home or self-care (01) ==
LOC: LAB 12:26
PROVIDERS: PCP Family Medicine; Referring Provider Family Medicine; Visit Provider Family Medicine
DX: I10 Essential (primary) hypertension (principal); E03.9 Hypothyroidism, unspecified; N40.0 Benign prostatic hyperplasia without lower urinary tract symptoms; F51.04 Psychophysiologic insomnia
CPT/HCPCS: 36415; 80053; 80061; 83036; 84439; 84443

== ENCOUNTER → 2025-01-17 | Outpatient (CLI) | payer BC, SELFPAY ==
[2025-01-17 12:30] LABS: Hemoglobin A1c 5.7 % (<=5.6)
[2025-01-17 13:07] LABS: ALB/GLOB Ratio 1.6 RATIO (0.9-2.4); AST(SGOT) 29 U/L (<=37); Alanine Aminotransfer ALT/SGPT 37 U/L (<=46); Albumin, Serum 4.2 g/dL (3.4-4.8); Alkaline Phosphatase 45 U/L (40-129); Anion Gap 10 (5-15); BUN 14 mg/dL (4-19); BUN/Creat Ratio 15.9 RATIO (10-20); Calcium,Total 9.6 mg/dL (7.6-11.0); Carbon Dioxide 25.4 mmol/L (21.0-32.0); Chloride 103 mmol/L (98-108); Cholesterol 186 mg/dL (<=200); Creatinine, Serum 0.91 mg/dL (0.70-1.20); EST Glomerular Filtration Rate 95 (>60); Globulin 2.6 g/dL (2.2-4.2); Glucose 102 mg/dL (70-99); High Density Lipoprotein 45 mg/dL; Low Density Lipoprotein Calc. 122 mg/dL; PSA,Total- Diagnostic 2.88 ng/mL (0.00-4.00); Protein, Total 6.8 g/dL (5.9-8.4); Sodium Level 138 mmol/L (133-145); Total Bilirubin 0.79 mg/dL (0.00-1.30); Triglycerides 97 mg/dL; Very Low Density Lipoprotein 19 mg/dL (5-40); cholesterol:hdl ratio screen 4.12
== END | disposition home or self-care (01) ==
LOC: LAB 10:26
PROVIDERS: PCP Family Medicine; Referring Provider Urology; Visit Provider Urology
DX: N40.0 Benign prostatic hyperplasia without lower urinary tract symptoms (principal); F51.04 Psychophysiologic insomnia; I10 Essential (primary) hypertension; E03.9 Hypothyroidism, unspecified
CPT/HCPCS: 36415; 80053; 80061; 83036; 84153; 84439; 84443

== ENCOUNTER → 2025-08-03 | Outpatient (CLI) | payer BC, SELFPAY ==
--- OUTSIDE RECORDS SUMMARY | 2025-08-03 12:32 | XMS RPT_ITS | CCD ---
Author Organization [facility] Care Team Providers Care Grey Percher Name Role Phone VJ HUBBARD MD Attending Unavailable VJ HUBBARD MD Primary Care Unavailable VJ HUBBARD MD Primary Care Physician Christopher RIZO, Dr. Zabala Primary Care Provider Rubai RIZO, Dr. Lui Heller Attending Provider 1( [phone] Rubia RIZO, Dr. Lui Heller Referring Provider 1( [phone] Vj Hubbard Primary Care Unavailable Vj Hubbard Attending Unavailable Vj Hubbard Referring Unavailable Lui Barkley Attending Unavailable Lui Barkley Referring Unavailable Vj Hubbard Primary Care Unavailable Allergies Allergy Classification Reported Allergen(s) Allergy Type Date of Onset Reaction(s) Facility (8 sources) Codeine Drug Allergy 8 swelling in hands [facility] (1 source) Codeine Drug Allergy [address] [facility] Repository Medications Current Medications Medication Drug Class(es) Dates Sig (Normalized) Sig (Original) acetaminophen 325 mg / HYDROcodone bitartrate 5 mg oral tablet (13 sources) Opioid Agonist Start: 05-19-2023 take 1 tablet by mouth every six hours as needed for pain Hydrocodone-Aceta minophen 5-325 mg tablet Active 1 {tbl} PO EVERY 6 HOURS NEEDED as needed for Pain 10 May 19, 2023 Start: 05-19-2023 take 1 tablet by iliana th every six hours as needed Hydrocodone-Acetaminophen Active 1 TABLE T PO EVERY 6 HOURS NEEDED 10 May 19, 2023 Start: 04-07-2018 End: 05-19-2023 Hydrocodone-Acetaminophen 1 TABLET tablet Discontinued 1 {tbl} PO EVERY 4 HOURS NEEDED as needed for Pain 8 April 07, 2018 12:00am May 19, 2023 4:46am Start: 04-07-2018 End: 05-19-2023 take 1 tablet by mouth every four hours as needed Hydrocodone-Acetaminophen Discontinued 1 TABLET PO EVERY 4 HOURS NEEDED 8 3 April 06, 2018 11:00pm May 19, 2023 3:46am Antiarthritic Combination No .2 (Glucosamine-Chondroitin) 900 mg tablet (5 sources) Start: 05-19-2023 take 1 tablet by mouth twice daily Antiarthritic Combination No.2 (Glucosamine-Chondroitin) 900 mg tablet Active 900 mg PO TWICE A DAY May 19, 2023 12:00am Start: 05-19-2023 take 1 tablet by iliana th twice daily Antiarthritic Combination No.2 (Glucosamine-Chondroitin) 900 mg tablet Active 900 MG PO TWICE A DAY May 18, 2023 11:00pm Start: 05-19-2023 take 1 tablet by iliana th twice daily Antiarthritic Combination No.2 (Glucosamine-Chondroitin) 900 mg tablet Active 900 MG PO TWICE A DAY May 19, 2023 12:00am aspirin 81 mg delayed release oral tablet (9 sources) Platelet Aggregation Inhibitor, Nonsteroidal Anti-inflammatory Drug Start: 01-03-2018 Aspirin (Adult Low Dose Aspirin) 81 mg tablet,delayed release (DR/EC) Active 81 mg PO AT BEDTIME February 28, 2018 12:00am cetirizine hydrochloride 10 mg oral capsule (8 sources) Histamine-1 Receptor Antagonist Start: 02-28-2018 take 1 capsule by mouth once daily Cetirizine (Zyrtec) 10 mg capsule Active 10 mg PO daily February 28, 2018 12:00am Fish Oils (1 source) Start: 01-03-2018 Fish Oil 1200 mg oral capsule Dose : 1,200 mg = 1 cap(s), Oral, BID, 0 Refill(s) Start Date: 01/03/18 Status: Ordered hydroCHLOROthiazide 12.5 mg / losartan potassium 100 mg oral tablet (9 sources) Thiazide Diuretic, Angiotensin 2 Receptor Edison Start: 02-28-2018 take 1 tablet by mouth once daily hydrochlorothiazi de-losartan 12.5-100 mg oral tablet See Instructions, TAKE 1 TABLET DAILY, # 90 tab(s), 3 Refill(s), Pharmacy: [facility], 180.3, cm, 01/13/22 13:07:00 EDT, Height, kg, 01/13/22 13:07:00 EDT, Dosing Weight Start Date: 06/02/22 Status: Ordered Start: 02-28-2018 take 1 tablet by iliana th once daily Losartan-Hydrochlorothiazide Active 1 TA BLET PO daily February 27, 2018 11:00pm ibuprofen 600 mg oral tablet (5 sources) Nonsteroidal Anti-inflammatory Drug Start: 05-19-2023 take 1 tablet by mouth every eight hours as needed for pain Ibuprofen 600 mg tablet Active 600 mg PO EVERY 8 HOURS NEEDED as needed for pain May 19, 2023 12:00am levothyroxine sodium 0.175 mg oral tablet (20 sources) l-Thyroxine Start: 05-19-2023 take 1 tablet by mouth once daily Levothyroxine (Levothyroxine 175 Mcg Tablet) 175 mcg tablet Active 175 ug PO DAILY May 19, 2023 12:00am Start: 07-14-2022 levothyroxine 175 mcg (0.175 mg) oral tablet Dose : 175 mcg = 1 tab(s), Oral, qDay, # 90 tab(s), 3 Refill(s), Pharmacy: [facility], 182.5, cm, 07/14/22 13:32:00 EST, Height Start Date: 07/14/22 Status: Ordered Start: 05-24-2018 End: 05-19-2023 take 1 tablet by mouth once daily Levothyroxine 150 mcg tablet Discontinued 150 ug PO DAILY May 24, 2018 12:00am May 19, 2023 4:46am Start: 04-07-2018 End: 05-24-2018 take 1 tablet by mouth once daily Levothyroxine 100 MCG tablet Discontinued 100 ug PO DAILY April 07, 2018 12:00am May 24, 2018 11:25am Start: 02-28-2018 End: 04-07-2018 take 1 capsule by mouth once daily Levothyroxine 50 mcg capsule Discontinued 50 ug PO daily February 28, 2018 12:00am April 07, 2018 7:19am loratadine 10 mg oral tablet (1 source) Start: 01-03-2018 Claritin 10 mg oral tablet Dose : 10 mg = 1 tab(s), Oral, qDay, # 30 tab(s), 0 Refill(s) Start Date: 01/03/18 Status: Ordered [place] 9-Nai-Kau-Fish Oil (Fi sh Oil) 1,200 (144-216) mg capsule (5 sources) Start: 05-19-2023 [place] 3-Dha-Ep a-Fish Oil (Fish Oil) 1,200 (144-216) mg capsule Active 1 NMA PO DAILY May 19, 2023 12:00am Start: 05-19-2023 take 1 capsule by mo ut once daily [place] 1-Tde-Tvn-Fish Oil (Fish Oil) 1,200 (144-216) mg capsule Active 1 CAP PO DAILY May 18, 2023 11:00pm Start: 05-19-2023 take 1 capsule by mo uth once daily [place] 7-Byr-Usj-Fish Oil (Fish Oil) 1,200 (144-216) mg capsule Active 1 CAP PO DAILY May 19, 2023 12:00am ondansetron 4 mg disintegrating oral tablet (5 sources) Serotonin-3 Receptor Antagonist Start: 05-19-2023 take 1 tablet by mouth every eight hours as needed for nausea Ondansetron 4 mg tablet,disintegrating Active 4 mg PO EVERY 8 HOURS NEEDED as needed for Nausea May 19, 2023 12:00am Osteo Bi-Flex Triple Strength (1 source) Start: 01-13-2021 Osteo Bi-Flex Triple Strength 0 Refill(s) Start Date: 01/13/21 Status: Ordered Prostate Formula (1 source) Start: 06-02-2019 Prostate Formula Prostate Formula, Saw palmetto, 0 Refill(s) Start Date: 06/02/19 Status: Ordered red yeast rice 600 mg oral capsule (8 sources) Start: 03-31-2018 take 1 capsule by mouth twice daily Red Yeast Rice 600 MG capsule Active 600 mg PO TWICE A DAY March 31, 2018 12:00am Red Yeast Rice 600 mg oral capsule (1 source) Start: 01-03-2018 Red Yeast Rice 600 mg oral capsule Dose : 600 mg = 1 cap(s), Oral, BIDM, 0 Refill(s) Start Date: 01/03/18 Status: Ordered Saw-Vit E-Sod Hqt-Lqs-Zzco-Pyg (7 sources) Start: 03-31-2018 Saw-Vit E-Sod Sqj-Riz-Gpur-Pyg Active 1 EACH PO TWICE A DAY March 31, 2018 9:52am Start: 03-31-2018 Saw-Vit E-Sod Wwt-Uwc-Xhhz-Pyg Active 1 EACH PO TWICE A DAY March 31, 2018 12:00am Start: 03-31-2018 Saw-Vit E-Sod Kbv-Wfy-Mtgt-Pyg Active 1 EACH PO TWICE A DAY March 30, 2018 11:00pm Saw-Vit E-Sod Oll-Ryb-Gktw-Pyg 1 EACH tablet (1 source) Start: 03-31-2018 take 1 tablet by mouth twice daily Saw-Vit E-Sod Vys-Ogd-Wlwc-Pyg 1 EACH tablet Active 1 NMA PO TWICE A DAY March 31, 2018 12:00am sildenafil 100 mg oral tablet (5 sources) Phosphodiesterase 5 Inhibitor Start: 05-19-2023 take 1 tablet by mouth every twenty-four hours as needed Sildenafil 100 mg tablet Active 100 mg PO Q24H as needed for sexual activity May 19, 2023 12:00am tamsulosin hydrochloride 0.4 mg oral capsule (5 sources) alpha-Adrenergic Edison Start: 05-19-2023 take 1 capsule by mouth once daily Tamsulosin (Flomax) 0.4 mg capsule Active 0.4 mg PO DAILY May 19, 2023 12:00am Vitamin C 500 mg oral tablet (1 source) Start: 07-15-2020 Vitamin C 500 mg oral tablet Dose : 500 mg = 1 tab(s), Oral, qDay, # 30 tab(s), 0 Refill(s) Start Date: 07/15/20 Status: Ordered Completed/Discontinued Medications Medication Drug Class(es) Dates Sig (Normalized) Sig (Original) minocycline 100 mg oral capsule (8 sources) Tetracycline-cla ss Drug Start: 02-28-2018 End: 05-19-2023 take 1 capsule by mouth twice daily Minocycline (Minocin) 100 mg capsule Discontinued 100 mg PO TWICE A DAY February 28, 2018 12:00am May 19, 2023 4:46am [place]-3 Fatty Acids-Fish Oil (Fish Oil Extra Strength) 435-880 mg capsule (8 sources) Start: 02-28-2018 End: 04-07-2018 take 1 capsule by mouth twice daily [place]-3 Fatty Acids-Fish Oil (Fish Oil Extra Strength) 435-880 mg capsule Discontinued 360 MG PO TWICE A DAY February 28, 2018 4:21pm April 07, 2018 7:13am Start: 02-28-2018 End: 04-07-2018 take 1 capsule by mouth twice daily [place]-3 Fatty Acids-Fish Oil (Fish Oil Extra Strength) 435-880 mg capsule Discontinued 360 mg PO TWICE A DAY February 28, 2018 12:00am April 07, 2018 7:13am Start: 02-28-2018 End: 04-07-2018 take 1 capsule by mouth twice daily [place]-3 Fatty Acids-Fish Oil (Fish Oil Extra Strength) 435-880 mg capsule Discontinued 360 MG PO TWICE A DAY February 28, 2018 12:00am April 07, 2018 7:13am Start: 02-28-2018 End: 04-07-2018 take 1 capsule by mouth twice daily [place]-3 Fatty Acids-Fish Oil (Fish Oil Extra Strength) 435-880 mg capsule Discontinued 360 MG PO TWICE A DAY February 27, 2018 11:00pm April 07, 2018 6:13am Problems Problem Classification Problem Date Documented Date Episodic/Chronic Calculus of urinary tract (5 sources) Ureteric stone; Translations: [Calculus of ureter] 05-19-2023 Episodic Diabetes mellitus without complication (1 source) Impaired fasting glycemia 07-26-2019 Episodic Disorders of lipid metabolism (11 sources) Mixed hyperlipidemia; Translations: [Mixed hyperlipidemia] Chronic Disorders of teeth and jaw (8 sources) Loss of teeth due to extraction; Translations: [Partial loss of teeth, unspecified cause, unspecified class] 04-07-2018 Episodic Essential hypertension (12 sources) Hypertensive disorder; Translations: [Essential (primary) hypertension] Onset: 08-21-2024 Chronic Hyperplasia of prostate (4 sources) Benign prostatic hypertrophy without outflow obstruction; Translations: [Benign prostatic hyperplasia without lower urinary tract symptoms] Onset: 01-24-2025 Chronic Miscellaneous mental health disorders (1 source) Chronic insomnia 07-26-2019 Chronic Mood disorders (2 sources) 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 Other screening for suspected conditions (not mental disorders or infectious disease) (2 sources) Raised prostate specific antigen; Translations: [Elevated prostate specific antigen [PSA]] Episodic Residual codes; unclassified (8 sources) History of colonoscopy; Translations: [Other specified postprocedural states] 04-07-2018 Episodic Comment on above: 11/2017 Skin and subcutaneous tissue infections (1 source) Cellulitis 01-03-2018 Episodic Comment on above: BILATERAL LOWER LEGS Thyroid disorders (20 sources) Goiter; 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 Bilirubin, totalOrdered By: Lui Barkley on 01-17-2025 Bilirubin [Mass/Vol] 0.79 mg/dL 0.00-1.30 [facility] Calculated very low density lipoprotein (VLDL) cholesterol measurementOrdered By: Lui Barkley on 01-17-2025 Calculated very low density lipoprotein (VLDL) cholesterol measurement 19 mg/dL - [facility] Carbon dioxide, total [Moles /volume] in Central venous bloodOrdered By: Lui Barkley on 01-17-2025 CO2 [Moles/Vol] 25.4 mmol/L 21.0-32.[address] [facility] Chloride assayOrdered By: Malia Barkley on 01-17-2025 Chloride [Moles/Vol] 103 mmol/L 98-108 [facility] Comprehensive Metabolic Prof ilon 01-17-2025 Albumin [Mass/Vol] 4.2 g/dL Normal 3.4-4.8 [facility] Comment on above: Performed By: #### L [id number], [id number], [id number], L501.9520, L500.4050, L500.4100 #### [facility] Laboratory [facility] [place], [address] Albumin/Globulin [Mass ratio] 1.6 {ratio} Normal 0.9-2.[address] [facility] Comment on above: Performed By: #### L [id number], [id number], [id number], [id number], L500.4050, L500.4100 #### [facility] [address] [place], [address] ALK PHOS 45 U/L Normal 40-[address] [facility] Comment on above: Performed By: #### L [id number], [id number], [id number], [id number], L500.4050, L500.4100 #### [facility] [address] [place], [address] ALT [Catalytic activity/Vol] 37 U/L Normal <=[address] [facility] Comment on above: Performed By: #### L [id number], [id number], [id number], [id number], L500.4050, L500.4100 #### [facility] [address] [place], [address] AST [Catalytic activity/Vol] 29 U/L Normal <=[address] [facility] Comment on above: Performed By: #### L [id number], [id number], [id number], L501.9520, L500.4050, L500.4100 #### [facility] [address] [place], [address] Bilirubin [Mass/Vol] 0.79 mg/dL Normal 0.00-1.30 [facility] Comment on above: Performed By: #### L [id number], [id number], [id number], [id number], L500.4050, L500.4100 #### [facility] [address] [place], [address] BUN/CRE 15.9 RATIO Normal 10-[address] [facility] Comment on above: Performed By: #### L [id number], [id number], [id number], L501.9520, L500.4050, L500.4100 #### [facility] [address] [place], [address] Calcium [Mass/Vol] 9.6 mg/dL Normal 7.6-11.0 [facility] Comment on above: Performed By: #### L [id number], [id number], [id number], L501.9520, L500.4050, L500.4100 #### [facility] [address] [place], [address] Chloride [Moles/Vol] 103 mmol/L Normal 98-108 [facility] Comment on above: Performed By: #### L [id number], [id number], [id number], L501.9520, L500.4050, L500.4100 #### [facility] [address] [place], [address] CO2 [Moles/Vol] 25.4 mmol/L Normal 21.0-32.[address] [facility] Comment on above: Performed By: #### L [id number], [id number], L501.9940, L501.9520, L500.4050, L500.4100 #### [facility] [address] [place], [address] Creatinine [Mass/Vol] 0.91 mg/dL Normal 0.70-1.20 [facility] Comment on above: Performed By: #### L [id number], [id number], [id number], L501.9520, L500.4050, L500.4100 #### [facility] [address] [place], [address] GAP 10 Normal 5-[address] [facility] Comment on above: Performed By: #### L [id number], L506.0400, L501.9940, L501.9520, L500.4050, L500.4100 #### [facility] [address] [place], [address] GFR/1.73 sq M.predicted among non-blacks MDRD (S/P/Bld) [Vol rate/Area] 95 mL/min/{1.73_m2} Normal >[address] [facility] Comment on above: Result Comment: mL/m in/1.73m2 CKD-EPI Creatinine Equation (2020) Performed By: #### L [id number], L506.0400, L501.9940, L501.9520, L500.4050, L500.4100 #### [facility] [address] [place], [address] Globulin (S) [Mass/Vol] 2.6 g/dL Normal 2.2-4.[address] [facility] Comment on above: Performed By: #### L [id number], L506.0400, L501.9940, L501.9520, L500.4050, L500.4100 #### [facility] [address] [place], [address] Glucose [Mass/Vol] 102 mg/dL High 70-99 [facility] Comment on above: Performed By: #### L [id number], L506.0400, L501.9940, L501.9520, L500.4050, L500.4100 #### [facility] [address] [place], [address] Potassium [Moles/Vol] 4.0 mmol/L Normal 3.3-5.1 [facility] Comment on above: Performed By: #### L [id number], L506.0400, L501.9940, L501.9520, L500.4050, L500.4100 #### [facility] [address] [place], [address] Sodium [Moles/Vol] 138 mmol/L Normal 133-145 [facility] Comment on above: Performed By: #### L [id number], L506.0400, L501.9940, L501.9520, L500.4050, L500.4100 #### [facility] [address] [place], [address] T PROT 6.8 g/dL Normal 5.9-8.[address] [facility] Comment on above: Performed By: #### L [id number], [id number], L501.9940, L501.9520, L500.4050, L500.4100 #### [facility] [address] [place], [address] Urea nitrogen [Mass/Vol] 14 mg/dL Normal 4-[address] [facility] Comment on above: Performed By: #### L [id number], [id number], L501.9940, L501.9520, L500.4050, L500.4100 #### [facility] [address] [place], [address] Glomerular filtration rate ( GFR) estimation/1.73 sq m using serum, plasma, or whole bOrdered By: Lui Barkley on 01-17-2025 GFR/1.73 sq M.predicted among non-blacks MDRD (S/P/Bld) [Vol rate/Area] 95 mL/min/{1.73_m2} >[address] [facility] Comment on above: mL/min/1.73m2 CKD-EP I Creatinine Equation (2020) Hemoglobin A1con 01-17-2025 HbA1c (Bld) [Mass fraction] 5.7 % Normal <=5.[address] [facility] Comment on above: Result Comment: Norm al < 5.7 % Prediabetic 5.7 - 6.4 % Diabetic >or= 6.5 % Please note range changes. Performed By: #### L [id number], L506.0400, L501.9940, L501.9520, L500.4050, L500.4100 #### [facility] [address] [place], [address] Hemoglobin A1c percentageOrd ered By: Lui Barkley on 01-17-2025 HbA1c (Bld) [Mass fraction] 5.7 % <5.[address] [facility] Comment on above: Normal < 5.7 % Predi abetic 5.7 - 6.4 % Diabetic >or= 6.5 % Please note range changes. LDL calc ser/plasOrdered By: Lui Barkley on 01-17-2025 Cholesterol in LDL [Mass/Vol] 122 mg/dL [facility] Comment on above: Oxbqaevyol=918-640 m g/dL & Higher Husi=950 mg/dL or greater Laboratory - Chemistry and C hemistry - challengeOrdered By: Lui Rubia on 01-17-2025 AST [Catalytic activity/Vol] 29 U/L <[address] [facility] Lipid Profileon 01-17-2025 CHOL:HDL 4.[address] [facility] Comment on above: Performed By: #### L [id number], L506.0400, L501.9940, L501.9520, L500.4050, L500.4100 #### [facility] [address] [place], [address] Cholesterol [Mass/Vol] 186 mg/dL Normal <=200 [facility] Comment on above: Result Comment: Chol esterol level, Desirable <200 mg/dL Borderline high cholesterol 200-239 mg/dL High cholesterol >=240 mg/dL Recommendations of the NCEP Adult Treatment Panel for the following risk-cutoff thresholds for the [place] population. Performed By: #### L [id number], L506.0400, L501.9940, L501.9520, L500.4050, L500.4100 #### [facility] [address] [place], [address] Cholesterol in HDL [Mass/Vol] 45 mg/dL Normal [facility] Comment on above: Result Comment: [place] onal Cholesterol Education Program (NCEP) guidelines: <40 mg/dL: Low HDL-cholesterol (major risk factor for CHD) >= 60 mg/dL: High HDL-cholesterol (negative risk factor for CHD) HDL-cholesterol is affected by a number of factors, e.g. smoking, exercise, hormones, sex and age. Performed By: #### L [id number], L506.0400, L501.9940, L501.9520, L500.4050, L500.4100 #### [facility] [address] [place], [address] Cholesterol in LDL [Mass/Vol] 122 mg/dL Normal [facility] Comment on above: Result Comment: Bord nwmjko=820-439 mg/dL Higher Nuoa=925 mg/dL or greater Performed By: #### L [id number], L506.0400, L501.9940, L501.9520, L500.4050, L500.4100 #### [facility] [address] [place], [address] (785 Cholesterol in VLDL [Mass/Vol] 19 mg/dL Normal 5-[address] [facility] Comment on above: Performed By: #### L [id number], L506.0400, L501.9940, L501.9520, L500.4050, L500.4100 #### [facility] [address] [place], [address] (454 Triglyceride [Mass/Vol] 97 mg/dL Normal [facility] Comment on above: Result Comment: The drugs N-Acetylcysteine and Metamizole may falsely depress this assay. Normal range: <150 mg/dL Borderline High: 150-199 mg/dL High: 200-499 mg/dL Very High: >500 mg/dL Performed By: #### L [id number], L506.0400, L501.9940, L501.9520, L500.4050, L500.4100 #### [facility] [address] [place], [address] (709 PSA,Total- Diagnosticon 01-04 PSA, DIAGNOSTIC 2.88 ng/mL Normal 0.00-4.[address] [facility] Comment on above: Result Comment: This test was performed using the [employer] tPSA method. Measured values of a patient??sample can vary depending on the testing procedure used. PSA values determined on patient samples by different testing procedures cannot be used interchangeably. If there is a change in PSA assays while monitoring therapy, sequential testing should be performed to confirm baseline values. Performed By: #### L [id number], L506.0400, L501.9940, L501.9520, L500.4050, L500.4100 #### [facility] [place], [address] Potassium measurement (mass/ volume)Ordered By: Lui Barkley on 01-17-2025 Potassium (Unsp spec) [Mass/Vol] 4.0 mmol/L 3.3-5.[address] [facility] Screening total cholesterol/ high density lipoprotein (HDL) cholesterol ratioOrdered By: Lui Barkley on 01-17-2025 Cholesterol.total/Chol esterol in HDL [Mass ratio] 4.12 {ratio} [facility] Serum creatinine measurement (mass/volume)Ordered By: Lui Barkley on 01-17-2025 Creatinine [Mass/Vol] 0.91 mg/dL 0.70-1.20 [facility] Serum globulin measurementOr dered By: Lui Barkley on 01-17-2025 Globulin (S) [Mass/Vol] 2.6 g/dL 2.2-4.[address] [facility] Serum glucose measurement (m ass/volume)Ordered By: Lui Barkley on 01-17-2025 Glucose [Mass/Vol] 102 mg/dL High 70-99 [facility] Serum or plasma alanine shoemaker otransferase (ALT) measurementOrdered By: Lui Barkley on 01-17-2025 ALT [Catalytic activity/Vol] 37 U/L <[address] [facility] Serum or plasma albumin karrie urement (mass/volume)Ordered By: Lui Barkley on 01-17-2025 Albumin [Mass/Vol] 4.2 g/dL 3.4-4.8 [facility] Serum or plasma albumin/glob ulin mass ratioOrdered By: Lui Barkley on 01-17-2025 Albumin/Globulin [Mass ratio] 1.6 {ratio} 0.9-2.[address] [facility] Serum or plasma alkaline tip sphatase measurementOrdered By: Lui Barkley on 01-17-2025 ALP [Catalytic activity/Vol] 45 U/L 40-[address] [facility] Serum or plasma calcium karrie urement (mass/volume)Ordered By: Lui Barkley on 01-17-2025 Calcium [Mass/Vol] 9.6 mg/dL 7.6-11.0 [facility] Serum or plasma cholesterol in HDL measurement (mass/volume)Ordered By: Lui Barkley on 01-17-2025 Cholesterol in HDL [Mass/Vol] 45 mg/dL >[address] [facility] Comment on above: National Cholesterol Education Program (NCEP) guidelines:<40 mg/dL: Low HDL-cholesterol (major risk factor for CHD)>= 60 mg/dL: High HDL-cholesterol (negative risk factor for CHD)HDL-cholesterol is affected by a number of factors, e.g. smoking, exercise, hormones, sex and age. Serum or plasma cholesterol measurement (mass/volume)Ordered By: Lui Barkley on 01-17-2025 Cholesterol [Mass/Vol] 186 mg/dL <201 [facility] [facility] Comment on above: Cholesterol level, D esirable <200 mg/dLBorderline high cholesterol 200-239 mg/dLHigh cholesterol >=240 mg/dLRecommendations of the NCEP Adult Treatment Panel for the following risk-cutoff thresholds for the [place] population. Serum or plasma urea nitroge n measurement (mass/volume)Ordered By: Lui Barkley on 01-17-2025 Urea nitrogen [Mass/Vol] 14 mg/dL 4-[address] [facility] Sodium levelOrdered By: Lui Barkley on 01-17-2025 Sodium [Moles/Vol] 138 mmol/L 133-145 [facility] T4 Free Directon 01-17-2025 T4 FREE DIRECT 1.70 ng/dL High 0.76-1.[address] [facility] Comment on above: Performed By: #### L 501.9985, L506.0400, L501.9940, L501.9520, L500.4050, L500.4100 #### [facility] Laboratory [facility] [place], [address] T4 freeOrdered By: Lui mitchell on 01-17-2025 Free T4 [Mass/Vol] 1.70 ng/dL High 0.76-1.46 [facility] TSH DL <= 0.005 mIU/L QnOrde red By: Lui Barkley on 01-17-2025 TSH Qn 2.980 uIU/mL 0.300-4.[address] [facility] Thyroid Stim Hormone (TSH)on 01-17-2025 TSH 2.980 uIU/mL Normal 0.300-4.[address] [facility] Comment on above: Performed By: #### L 501.9985, L506.0400, L501.9940, L501.9520, L500.4050, L500.4100 #### [facility] Laboratory [address] [place], [address] Total proteinOrdered By: Lamont Barkley on 01-17-2025 Protein [Mass/Vol] 6.8 g/dL 5.9-8.4 [facility] Triglycerides measurementOrd ered By: Lui Barkley on 01-17-2025 Triglyceride [Mass/Vol] 97 mg/dL <[address] [facility] Comment on above: The drugs N-Acetylcy steine and Metamizole may falsely depress this assay. Normal range: <150 mg/dLBorderline High: 150-199 mg/dLHigh: 200-499 mg/dLVery High: >500 mg/dL Comprehensive Metabolic Prof ilon 07-24-2024 Albumin [Mass/Vol] 3.6 g/dL Normal 3.2-5.0 [facility] Comment on above: Performed By: #### L 500.4100, L500.4050, L506.0400, L501.9985, L501.9520 #### [facility] Laboratory [address] [place], [address] Albumin/Globulin [Mass ratio] 1.2 {ratio} Normal 0.9-2.[address] [facility] Comment on above: Performed By: #### L 500.4100, L500.4050, L506.0400, L501.9985, L501.9520 #### [facility] Laboratory [address] [place], [address] ALK P 44 U/L Low 45-[address] [facility] Comment on above: Performed By: #### L 500.4100, L500.4050, L506.0400, L501.9985, L501.9520 #### [facility] Laboratory [address] [place], [address] ALT [Catalytic activity/Vol] 45 U/L Normal 16-[address] [facility] Comment on above: Performed By: #### L 500.4100, L500.4050, L506.0400, L501.9985, L501.9520 #### [facility] Laboratory [address] [place], [address] AST [Catalytic activity/Vol] 24 U/L Normal 15-[address] [facility] Comment on above: Performed By: #### L 500.4100, L500.4050, L506.0400, L501.9985, L501.9520 #### [facility] [address] [place], [address] Bilirubin [Mass/Vol] 0.70 mg/dL Normal 0.20-1.00 [facility] Comment on above: Result Comment: For patients on eltrombopag therapy, use of Dimension Arverne TBIL is not recommended. Performed By: #### L 500.4100, L500.4050, L506.0400, L501.9985, L501.9520 #### [facility] Laboratory [address] [place], [address] BUN/CRE 14.8 RATIO Normal 10-[address] [facility] Comment on above: Performed By: #### L 500.4100, L500.4050, L506.0400, L501.9985, L501.9520 #### [facility] [address] [place], [address] CA,Total 9.2 mg/dL Normal 8.5-10.[address] [facility] Comment on above: Performed By: #### L 500.4100, L500.4050, L506.0400, L501.9985, L501.9520 #### [facility] Laboratory [address] [place], [address] Chloride [Moles/Vol] 104 mmol/L Normal 98-107 [facility] Comment on above: Performed By: #### L 500.4100, L500.4050, L506.0400, L501.9985, L501.9520 #### [facility] [address] [place], [address] CO2 [Moles/Vol] 28.0 mmol/L Normal 21.0-32.[address] [facility] Comment on above: Performed By: #### L 500.4100, L500.4050, L506.0400, L501.9985, L501.9520 #### [facility] Laboratory [address] [place], [address] Creatinine [Mass/Vol] 0.94 mg/dL Normal 0.70-1.30 [facility] Comment on above: Result Comment: The validity of the calculated GFR GFRAA in patients over 70 years has not been determined. Clinical correlation is essential. Performed By: #### L 500.4100, L500.4050, L506.0400, L501.9985, L501.9520 #### [facility] Laboratory [address] [place], [address] EST GFR - AA 104 mL/min Normal >[address] [facility] Comment on above: Result Comment: Afri can [place] GFR Calc Performed By: #### L 500.4100, L500.4050, L506.0400, L501.9985, L501.9520 #### [facility] Laboratory [address] [place], [address] GAP 5 Normal 5-[address] [facility] Comment on above: Performed By: #### L 500.4100, L500.4050, L506.0400, L501.9985, L501.9520 #### [facility] [address] [place], [address] GFR/1.73 sq M.predicted among non-blacks MDRD (S/P/Bld) [Vol rate/Area] 86 mL/min/{1.73_m2} Normal >[address] [facility] Comment on above: Result Comment: Non- GFR Calc Performed By: #### L 500.4100, L500.4050, L506.0400, L501.9985, L501.9520 #### [facility] [address] [place], [address] Globulin (S) [Mass/Vol] 3.1 g/dL Normal 2.2-4.[address] [facility] Comment on above: Performed By: #### L 500.4100, L500.4050, L506.0400, L501.9985, L501.9520 #### [facility] Laboratory [address] [place], [address] Glucose [Mass/Vol] 111 mg/dL High 74-106 [facility] Comment on above: Result Comment: Fast ing Glucose result from 100 to 125 mg/dL suggests IMPAIRED HOMEOSTASIS per A.D.A. criteria. Performed By: #### L 500.4100, L500.4050, L506.0400, L501.9985, L501.9520 #### [facility] Laboratory [address] [place], [address] Potassium [Moles/Vol] 3.9 mmol/L Normal 3.5-5.1 [facility] Comment on above: Performed By: #### L 500.4100, L500.4050, L506.0400, L501.9985, L501.9520 #### [facility] Laboratory [address] [place], [address] Sodium [Moles/Vol] 138 mmol/L Normal 136-145 [facility] Comment on above: Performed By: #### L 500.4100, L500.4050, L506.0400, L501.9985, L501.9520 #### [facility] [address] [place], [address] T PROT 6.7 g/dL Normal 6.4-8.[address] [facility] Comment on above: Performed By: #### L 500.4100, L500.4050, L506.0400, L501.9985, L501.9520 #### [facility] Laboratory [address] [place], [address] Urea nitrogen [Mass/Vol] 14 mg/dL Normal 7-[address] [facility] Comment on above: Performed By: #### L 500.4100, L500.4050, L506.0400, L501.9985, L501.9520 #### [facility] Laboratory [address] [place], [address] Hemoglobin A1con 07-24-2024 HbA1c (Bld) [Mass fraction] 5.7 % High 3.8-5.[address] [facility] Comment on above: Result Comment: Norm al < 5.7 % Prediabetic 5.7 - 6.4 % Diabetic >or= 6.5 % Please note range changes. Performed By: #### L 501.9985, L506.0400, L501.9940, L501.9520, L500.4050, L500.4100 #### [facility] [address] [place], [address] Lipid Profileon 07-24-2024 Cholesterol [Mass/Vol] 176 mg/dL Normal 200 [facility] Comment on above: Result Comment: <200 mg/dL Desirable 200-240 mg/dL Borderline >240 mg/dL High Risk Performed By: #### L 500.4100, L500.4050, L506.0400, L501.9985, L501.9520 #### [facility] [address] [place], [address] Cholesterol in HDL [Mass/Vol] 51 mg/dL Normal [facility] Comment on above: Result Comment: The drugs N-Acetylcysteine and Metamizole may falsely depress this assay. Reference Range HDL <40 mg/dL Low HDL Cholesterol HDL >or= 60 mg/dL High HDL Cholesterol Performed By: #### L 500.4100, L500.4050, L506.0400, L501.9985, L501.9520 #### [facility] [address] [place], [address] Cholesterol in LDL [Mass/Vol] 110 mg/dL Normal 0-[address] [facility] Comment on above: Performed By: #### L 500.4100, L500.4050, L506.0400, L501.9985, L501.9520 #### [facility] Laboratory [address] [place], [address] Cholesterol in VLDL [Mass/Vol] 15 mg/dL Normal 5-[address] [facility] Comment on above: Performed By: #### L 500.4100, L500.4050, L506.0400, L501.9985, L501.9520 #### [facility] [address] [place], [address] Triglyceride [Mass/Vol] 73 mg/dL Normal [facility] Comment on above: Result Comment: The drugs N-Acetylcysteine and Metamizole may falsely depress this assay. Serum Triglycerides Reference Interval Normal <150 mg/dL Borderline high 150 - 199 mg/dL High 200 - 499 mg/dL Very High > or = 500 mg/dL Performed By: #### L 500.4100, L500.4050, L506.0400, L501.9985, L501.9520 #### [facility] [address] [place], [address] T4 Free Directon 07-24-2024 T4 FREE DIRECT 1.42 ng/dL Normal 0.76-1.[address] [facility] Comment on above: Performed By: #### L 500.4100, L500.4050, L506.0400, L501.9985, L501.9520 #### [facility] [address] [place], [address] Thyroid Stim Hormone (TSH)on 07-24-2024 TSH 1.750 uIU/mL Normal 0.358-3.[address] [facility] Comment on above: Performed By: #### L 500.4100, L500.4050, L506.0400, L501.9985, L501.9520 #### [facility] Laboratory [address] [place], [address] Basophil percentageOrdered B y: Vj Hubbard on 07-07-2023 Bilirubin [Mass/Vol] 0.70 mg/dL 0.20-1.00 [facility] Comment on above: For patients on eltr ombopag therapy, use of Dimension Arverne TBIL is not recommended. Chloride [Moles/Vol] 105 mmol/L 98-107 [facility] Cholesterol [Mass/Vol] 173 mg/dL <200 [facility] Comment on above: <200 mg/dL Desirable 200-240 mg/dL Borderline >240 mg/dL High Risk Glucose [Mass/Vol] 117 mg/dL 74-106 [facility] Comment on above: Fasting Glucose resu lt from 100 to 125 mg/dL suggests IMPAIRED HOMEOSTASIS per A.D.A. criteria. Potassium [Moles/Vol] 4.1 mmol/L 3.5-5.1 [facility] Protein [Mass/Vol] 7.1 g/dL 6.4-8.2 [facility] Sodium [Moles/Vol] 142 mmol/L 136-145 [facility] Triglyceride [Mass/Vol] 122 mg/dL <[address] [facility] Comment on above: The drugs N-Acetylcy steine and Metamizole may falsely depress this assay.Serum Triglycerides Reference Interval Normal <150 mg/dL Borderline high 150 - 199 mg/dL High 200 - 499 mg/dL Very High > or = 500 mg/dL Laboratory - Chemistry and C hemistry - challengeOrdered By: Vj Hubbard on 07-07-2023 ALP [Catalytic activity/Vol] 49 U/L 45-[address] [facility] ALT [Catalytic activity/Vol] 58 U/L 16-[address] [facility] CO2 [Moles/Vol] 30.0 mmol/L 21.0-32.[address] [facility] Free T4 [Mass/Vol] 1.46 ng/dL 0.76-1.46 [facility] Globulin (S) [Mass/Vol] 3.4 g/dL 2.2-4.[address] [facility] Urea nitrogen/Creatinine [Mass ratio] 11.3 mg/mg 10-[address] [facility] No Panel InformationOrdered By: Vj Hubbard on 07-07-2023 Estimated GFR (MDRD) Amer 101 mL/min >[address] [facility] Comment on above: GFR Calc Estimated GFR (MDRD) Non-Af Amer 83 mL/min >[address] [facility] Comment on above: Non- GFR Calc Free Triiodothyronine (T3) pg/dL 2.8 pg/mL 2.18-3.[address] [facility] Prostate Specific Antigen Total 4.36 ng/mL 0.0-4.[address] [facility] Comment on above: This test was perfor med using the TPSA assay method for the[employer] chemistry system. Values obtained with differentassay methods cannot be used interchangably.When changing PSA assays in the course of monitoring apatient, additional sequential testing should be carriedout to confirm baseline values. Thyroid Stimulating Hormone (TSH) 0.32 uIU/mL 0.358-3.[address] [facility] Serum or plasma albumin karrie urement (mass/volume)Ordered By: Vj Hubbard on 07-07-2023 Albumin [Mass/Vol] 3.7 g/dL 3.2-5.0 [facility] Serum or plasma albumin/glob ulin mass ratioOrdered By: Vj Hubbard on 07-07-2023 Albumin/Globulin [Mass ratio] 1.1 {ratio} 0.9-2.[address] [facility] Serum or plasma calcium karrie urement (mass/volume)Ordered By: Vj Hubbard on 07-07-2023 Calcium [Mass/Vol] 9.6 mg/dL 8.5-10.1 [facility] Serum or plasma cholesterol in HDL measurement (mass/volume)Ordered By: Vj Hubbard on 07-07-2023 Cholesterol in HDL [Mass/Vol] 47 mg/dL >[address] [facility] Comment on above: The drugs N-Acetylcy steine and Metamizole may falsely depress this assay. Reference Range HDL <40 mg/dL Low HDL Cholesterol HDL >or= 60 mg/dL High HDL Cholesterol Serum or plasma cholesterol in VLDL measurement (mass/volume)Ordered By: Vj Hubbard on 07-07-2023 Cholesterol in VLDL [Mass/Vol] 24 mg/dL 5-[address] [facility] Serum or plasma creatinine m easurement (mass/volume)Ordered By: Vj Hubbard on 07-07-2023 Creatinine [Mass/Vol] 0.97 mg/dL 0.70-1.30 [facility] Comment on above: The validity of the calculated GFR & GFRAA in patients over 70 years has not been determined. Clinical correlation is essential. Serum or plasma low density lipoprotein (LDL) cholesterol measurement (mass/volume)Ordered By: Vj Hubbard on 07-07-2023 Cholesterol in LDL [Mass/Vol] 102 mg/dL 0-[address] [facility] Serum or plasma urea nitroge n measurement (mass/volume)Ordered By: Vj Hubbard on 07-07-2023 Urea nitrogen [Mass/Vol] 11 mg/dL 7-[address] [facility] Thin prep Papanicolaou smear with manual screeningOrdered By: Vj Hubbard on 07-07-2023 Thin prep Papanicolaou smear with manual screening 25 U/L 15-[address] [facility] Thin prep Papanicolaou smear with manual screening 7 5-[address] [facility] Whole blood hemoglobin A1c/t otal hemoglobin ratio (mass fraction)Ordered By: Vj Hubbard on 07-07-2023 HbA1c (Bld) [Mass fraction] 5.7 % 3.8-5.[address] [facility] Comment on above: Normal < 5.7 % Predi abetic 5.7 - 6.4 % Diabetic >or= 6.5 % Please note range changes. Color of specimen determinat ionOrdered By: Lui Barkley on 06-15-2023 Color (Unsp spec) Brown [facility] Laboratory - Miscellaneous t estsOrdered By: Lui Barkley on 06-15-2023 Service comment (Unsp spec) [Interp] See comment [facility] Comment on above: Physician questions regarding Calculi Analysis contact [facility] at: [phone] Calculi report will follow via computer, mail or casework specialist delivery Measurement of weight of sto neOrdered By: Lui Barkley on 06-15-2023 Weight (Stone) [address] [facility] No Panel InformationOrdered By: Lui Barkley on 06-15-2023 Stone Analysis (T) See comment [facility] Comment on above: Percentage (Represen ts the % composition) Stone Calcium Oxalate Monohydrate 40 % [facility] Origin of StoneOrdered By: Ruma Barkley on 06-15-2023 Origin Nom (Stone) Not Provided [facility] Size of stoneOrdered By: Lamont Barkley on 06-15-2023 Size (Stone) [Entitic vol] 5x[address] [facility] Comment on above: Multiple pieces rece ived. Dimensions of the largest piece reported. Thin prep Papanicolaou smear with manual screeningOrdered By: Lui Barkley on 06-15-2023 Thin prep Papanicolaou smear with manual screening See comment [facility] Comment on above: Photograph will foll ow under a separate cover Uric acid crystals detection in stone by infrared spectroscopyOrdered By: Lui Barkley on 06-15-2023 Urate crystals Infrared spectroscopy Ql (Stone) 60 % [facility] Absolute lymphocyte countOrd ered By: Radha Logan on 05-19-2023 Lymphocytes Auto (Unsp spec) [#/Vol] 1.19 10*3/uL 0.83-4.[address] [facility] Basophil percentageOrdered B y: Radha Logan on 05-19-2023 Basophil percentage 0-5 SEEN /hpf 0-5 [facility] Basophils/100 WBC (Bld) 0.2 % 0-[address] [facility] Chloride [Moles/Vol] 105 mmol/L 98-107 [facility] Eosinophils/100 WBC (Bld) 0.1 % 0-[address] [facility] Glucose [Mass/Vol] 153 mg/dL 74-106 [facility] Comment on above: Fasting Glucose resu lt greater than or equal to 126 mg/dL suggests DIABETES MELLITUS per A.D.A. criteria. Neutrophils (Bld) [#/Vol] 11.7 10*3/uL 2.0-7.[address] [facility] Neutrophils/100 WBC (Bld) 85.7 % 47-[address] [facility] Potassium [Moles/Vol] 4.1 mmol/L 3.5-5.1 [facility] Sodium [Moles/Vol] 139 mmol/L 136-145 [facility] WBC (Bld) [#/Vol] 13.7 10*3/uL 4.4-11.0 [facility] Bilirubin Test strip Ql (U)O rdered By: Radha Logan on 05-19-2023 Bilirubin Ql (U) Negative Negative [facility] Blood erythrocytes count (nu mber/volume)Ordered By: Radha Logan on 05-19-2023 RBC (Bld) [#/Vol] 5.02 10*6/uL 4.6-6.2 [facility] Blood hemoglobin measurement (mass/volume)Ordered By: Radha Logan on 05-19-2023 Hemoglobin (Bld) [Mass/Vol] 16.6 g/dL 13.0-16.[address] [facility] Blood lymphocytes/100 leukoc ytesOrdered By: Radha Logan on 05-19-2023 Lymphocytes/100 WBC (Bld) 8.7 % 19-[address] [facility] Blood monocytes/100 leukocyt esOrdered By: Radha Logan on 05-19-2023 Monocytes/100 WBC (Bld) 4.8 % 0-[address] [facility] Blood platelet mean volumeOr dered By: Radha Logan on 05-19-2023 Platelet mean volume (Bld) [Entitic vol] 10.5 fL 6.2-12.[address] [facility] Determination of erythrocyte mean corpuscular volume (MCV)Ordered By: Radha Logan on 05-19-2023 MCV (RBC) [Entitic vol] 96.8 fL 80-[address] [facility] Hematocrit Auto (Bld) [Volum e fraction]Ordered By: Radha Logan on 05-19-2023 Hematocrit (Bld) [Volume fraction] 48.6 % 40-[address] [facility] Ketones Test strip Ql (U)Ord ered By: Radha Logan on 05-19-2023 Ketones Ql (U) 15 mg/dl Negative [facility] Laboratory - Chemistry and C hemistry - challengeOrdered By: Radha Logan on 05-19-2023 CO2 [Moles/Vol] 27.0 mmol/L 21.0-32.[address] [facility] Urea nitrogen/Creatinine [Mass ratio] 10.7 mg/mg 10-[address] [facility] Laboratory - Hematology and Cell countsOrdered By: Radha Logan on 05-19-2023 Erythrocyte distribution width (RBC) [Entitic vol] 42.7 fL 35.1-43.[address] [facility] Erythrocyte distribution width (RBC) [Ratio] 12.0 % 11.6-14.[address] [facility] Immature granulocytes/100 WBC (Bld) 0.500 % 0.0-0.[address] [facility] Comment on above: IG% - Immature Granu locytes (promyelocytes, myelocytes and metamyelocytes) > 1% indicates that a LEFT SHIFT is Present. MCH (RBC) [Entitic mass] 33.1 pg 27.0-32.[address] [facility] Nucleated RBC/100 WBC (Bld) [Ratio] 0 % 0-[address] [facility] MCHC Auto (RBC) [Mass/Vol]Or dered By: Radha Logan on 05-19-2023 MCHC (RBC) [Mass/Vol] 34.2 g/dL 32-36 [facility] Mucus LM Ql (Urine sed)Order ed By: Radha Logan on 05-19-2023 Mucus Ql (Urine sed) 0 SEEN /hpf [facility] Nitrite Test strip Ql (U)Ord ered By: Radha Logan on 05-19-2023 Nitrite Ql (U) Negative Negative [facility] No Panel InformationOrdered By: Radha Logan on 05-19-2023 Estimated Creatinine Clearance Calc 67.42 ml/min [facility] Estimated GFR (MDRD) Amer 78 mL/min >[address] [facility] Comment on above: GFR Calc Estimated GFR (MDRD) Non-Af Amer 65 mL/min >[address] [facility] Comment on above: Non- GFR Calc Platelets bldOrdered By: Lanny Logan on 05-19-2023 Platelets (Bld) [#/Vol] 189 10*3/uL 150-[address] [facility] Protein Test strip Ql (U)Ord ered By: Radha Logan on 05-19-2023 Protein Ql (U) 15 mg/dl Negative [facility] Serum or plasma calcium karrie urement (mass/volume)Ordered By: Radha Logan on 05-19-2023 Calcium [Mass/Vol] 9.7 mg/dL 8.5-10.1 [facility] Serum or plasma creatinine m easurement (mass/volume)Ordered By: Radha Logan on 05-19-2023 Creatinine [Mass/Vol] 1.21 mg/dL 0.70-1.30 [facility] Comment on above: The validity of the calculated GFR & GFRAA in patients over 70 years has not been determined. Clinical correlation is essential. Serum or plasma urea nitroge n measurement (mass/volume)Ordered By: Radha Logan on 05-19-2023 Urea nitrogen [Mass/Vol] 13 mg/dL 7-[address] [facility] Squamous epithelial cells de tection in urine sediment by light microscopyOrdered By: Radha Logan on 05-19-2023 Epithelial cells.squamous LM Ql (Urine sed) 0-5 SEEN /hpf 0-[address] [facility] Thin prep Papanicolaou smear with manual screeningOrdered By: Radha Logan on 05-19-2023 Thin prep Papanicolaou smear with manual screening 7 5-[address] [facility] Urine blood detectionOrdered By: Radha Logan on 05-19-2023 RBC Ql (U) 250 /ul Negative [facility] RBC Ql (U) > 100 SEEN /hpf 0-[address] [facility] Urine clarityOrdered By: Lanny Logan on 05-19-2023 Clarity (U) Sl. Cloudy Clear [facility] Urine color determinationOrd ered By: Radha Logan on 05-19-2023 Color (U) Yellow Yellow [facility] Urine glucose detectionOrder ed By: Radha Logan on 05-19-2023 Glucose Ql (U) Normal mg/dl Normal [facility] Urine leukocyte esterase det ection by dipstickOrdered By: Radha Logan on 05-19-2023 Leukocyte esterase Test strip Ql (U) 25 /ul Negative [facility] Urine pHOrdered By: Radha Logan on 05-19-2023 pH (U) 6.0 [pH] 5.0 - 8.[address] [facility] Urine sediment bacteria coun t by microscopy (number/high power field)Ordered By: Radha Logan on 05-19-2023 Bacteria LM.HPF (Urine sed) [#/Area] 1 /[HPF] None Seen [facility] Urine specific gravity measu rementOrdered By: Radha Logan on 05-19-2023 Specific gravity (U) [Rel density] 1.020 1.002-1.[address] [facility] Urobilinogen Auto test strip Ql (U)Ordered By: Radha Logan on 05-19-2023 Urobilinogen Ql (U) 1 mg/dl Normal [facility] Basophil percentageOrdered B y: LUC Abernathy on 01-06-2023 Bilirubin [Mass/Vol] 0.50 mg/dL 0.20-1.00 [facility] Comment on above: For patients on eltr ombopag therapy, use of Dimension [place] TBIL is not recommended. Chloride [Moles/Vol] 108 mmol/L 98-107 [facility] Cholesterol [Mass/Vol] 177 mg/dL <200 [facility] [facility] Comment on above: <200 mg/dL Desirable 200-240 mg/dL Borderline >240 mg/dL High Risk Glucose [Mass/Vol] 114 mg/dL 74-106 [facility] Comment on above: Fasting Glucose resu lt from 100 to 125 mg/dL suggests IMPAIRED HOMEOSTASIS per A.D.A. criteria. Potassium [Moles/Vol] 4.4 mmol/L 3.5-5.1 [facility] Protein [Mass/Vol] 7.0 g/dL 6.4-8.2 [facility] Sodium [Moles/Vol] 139 mmol/L 136-145 [facility] Triglyceride [Mass/Vol] 111 mg/dL <[address] [facility] Comment on above: The drugs N-Acetylcy steine and Metamizole may falsely depress this assay.Serum Triglycerides Reference Interval Normal <150 mg/dL Borderline high 150 - 199 mg/dL High 200 - 499 mg/dL Very High > or = 500 mg/dL Laboratory - Chemistry and C hemistry - challengeOrdered By: LUC Abernathy on 01-06-2023 ALP [Catalytic activity/Vol] 46 U/L 45-[address] [facility] ALT [Catalytic activity/Vol] 57 U/L 16-[address] [facility] CO2 [Moles/Vol] 27.0 mmol/L 21.0-32.[address] [facility] Free T4 [Mass/Vol] 1.55 ng/dL 0.76-1.46 [facility] Globulin (S) [Mass/Vol] 3.4 g/dL 2.2-4.[address] [facility] Urea nitrogen/Creatinine [Mass ratio] 13.9 mg/mg 10-[address] [facility] No Panel InformationOrdered By: LUC Abernathy on 01-06-2023 Estimated GFR (MDRD) Amer 96 mL/min >[address] [facility] Comment on above: GFR Calc Estimated GFR (MDRD) Non-Af Amer 80 mL/min >[address] [facility] Comment on above: Non- GFR Calc Prostate Specific Antigen Total 3.84 ng/mL 0.0-4.[address] [facility] Comment on above: This test was perfor med using the TPSA assay method [facility]. Values obtained with differentassay methods cannot be used interchangably.When changing PSA assays in the course of monitoring apatient, additional sequential testing should be carriedout to confirm baseline values. Thyroid Stimulating Hormone (TSH) 0.41 uIU/mL 0.358-3.[address] [facility] Serum or plasma albumin karrie urement (mass/volume)Ordered By: LUC Abernathy on 01-06-2023 Albumin [Mass/Vol] 3.6 g/dL 3.2-5.0 [facility] Serum or plasma albumin/glob ulin mass ratioOrdered By: LUC Abernathy on 01-06-2023 Albumin/Globulin [Mass ratio] 1.1 {ratio} 0.9-2.[address] [facility] Serum or plasma calcium karrie urement (mass/volume)Ordered By: LUC Abernathy on 01-06-2023 Calcium [Mass/Vol] 9.4 mg/dL 8.5-10.1 [facility] Serum or plasma cholesterol in HDL measurement (mass/volume)Ordered By: LUC Abernathy on 01-06-2023 Cholesterol in HDL [Mass/Vol] 40 mg/dL >[address] [facility] Comment on above: The drugs N-Acetylcy steine and Metamizole may falsely depress this assay. Reference Range HDL <40 mg/dL Low HDL Cholesterol HDL >or= 60 mg/dL High HDL Cholesterol Serum or plasma cholesterol in VLDL measurement (mass/volume)Ordered By: LUC Abernathy on 01-06-2023 Cholesterol in VLDL [Mass/Vol] 22 mg/dL 5-[address] [facility] Serum or plasma creatinine m easurement (mass/volume)Ordered By: LUC Abernathy on 01-06-2023 Creatinine [Mass/Vol] 1.01 mg/dL 0.70-1.30 [facility] Comment on above: The validity of the calculated GFR & GFRAA in patients over 70 years has not been determined. Clinical correlation is essential. Serum or plasma low density lipoprotein (LDL) cholesterol measurement (mass/volume)Ordered By: LUC Abernathy on 01-06-2023 Cholesterol in LDL [Mass/Vol] 115 mg/dL 0-[address] [facility] Serum or plasma urea nitroge n measurement (mass/volume)Ordered By: LUC Abernathy on 01-06-2023 Urea nitrogen [Mass/Vol] 14 mg/dL 7-[address] [facility] Thin prep Papanicolaou smear with manual screeningOrdered By: LUC Abernathy on 01-06-2023 Thin prep Papanicolaou smear with manual screening 33 U/L 15-[address] [facility] Thin prep Papanicolaou smear with manual screening 4 5-[address] [facility] PSAFon 07-15-2022 PSA, % Free 18 % Normal [facility] ([place]) Comment on above: Result Comment: Tota l and free PSA test methodology used is the Electrochemiluminescence Immunoassay by [employer]. Total or free PSA values by differing methodologies cannot be interchanged. The below table lists the probability of finding prostate cancer upon needle biopsy, for men 50 years or older and total PSA concentrations from 4.0-10.0 ng/mL. Results should be interpreted within the broader clinical context. Free PSA(%) 50-59 years 60-69 years >69 years <11 49.2% 57.5% 64.5% 11-18 26.9% 33.9% 40.8% 19-25 18.3% 23.9% 29.7% >25 9.1% 12.2% 15.8% Performed By: [facility] [employer] [address] [place] [address] Sba Underwriter: Con Galeana III, M.D. CLIA#: [id number] Performed By: #### T SH, PSA, PSATF, FT4 #### [address] [address] PSA, Diagnostic 3.74 ng/mL High <2.60 [facility] ([place]) Comment on above: Result Comment: Tota l PSA test methodology used is the Electrochemiluminescence Immunoassay by [employer]. Total PSA values by differing methodologies cannot be interchanged. For an individual patient, the significance of a PSA level should be interpreted in a broad clinical context, including age, race, family history, digital rectal exam, prostate size, results of prior testing (prostate biopsy, free PSA, PCA3), and use of 5-alpha reductase inhibitors. Considering the high incidence of asymptomatic cancer in the general population that may not pose an ultimate risk to a patient, the decision to recommend urological evaluation or prostate biopsy should be individualized after consideration of all these factors. REFERENCE: Lio Mcfadden M.D., M.P.H., George Wadsworth M.D., Ph.D., Jesús Ornelas M.D., Bibiana Turcios, M.P.H., Eda Barnes, James.Lynette. Effect of Verification Bias on Screening for Prostate Cancer by Measurement of Prostatic Specific Antigen. N Engl J Med 2003,349:335-42. Performed By: [facility] [employer] [address] [place] [address] Sba Underwriter: Fernando Smart III#: [id number] Performed By: #### T SH, PSA, PSATF, FT4 #### [id number] [place], [place] [address] FT4on 07-14-2022 Free T4 [Mass/Vol] 1.32 ng/dL Normal 0.76-1.46 [facility] ([place]) Comment on above: Performed By: #### T SH, PSA, PSATF, FT4 #### [address] [address] LABORATORYOrdered By: Daniel Reeys on 07-14-2022 Free T4 [Mass/Vol] 1.32 ng/dL Invalid Interpretation Code 0.76 - 1.46 ng/dL AO ADM SS Prostate specific Ag [Mass/Vol] 4.33 ng/mL Invalid Interpretation Code 0.00 - 4.00 ng/mL AO ADM SS TSH Qn 3.67 m[IU]/L Invalid Interpretation Code 0.36 - 3.74 mcIU/mL AO ADM SS PSAon 07-14-2022 Prostate Specific Antigen 4.33 ng/mL High 0.00-4.00 [facility] ([place]) Comment on above: Performed By: #### T SH, PSA, PSATF, FT4 #### [address] [address] TSHon 07-14-2022 TSH Qn 3.67 m[IU]/L Normal 0.36-3.74 [facility] ([place]) Comment on above: Performed By: #### T SH, PSA, PSATF, FT4 #### [address] [address] Basophil percentageon 2021 Bilirubin [Mass/Vol] 0.70 mg/dL 0.20-1.00 [facility] Work Phone: Comment on above: For patients on eltr ombopag therapy, use of Dimension [place] TBIL is not recommended. Chloride [Moles/Vol] 106 mmol/L 98-[address] [facility] Work Phone: Cholesterol [Mass/Vol] 189 mg/dL <200 [facility] Work Phone: Comment on above: <200 mg/dL Desirable 200-240 mg/dL Borderline >240 mg/dL High Risk Glucose [Mass/Vol] 95 mg/dL 74-106 [facility] Work Phone: Potassium [Moles/Vol] 4.0 mmol/L 3.5-5.1 [facility] Work Phone: Protein [Mass/Vol] 7.1 g/dL 6.4-8.2 [facility] Work Phone: Sodium [Moles/Vol] 139 mmol/L 136-145 [facility] Work Phone: Triglyceride [Mass/Vol] 82 mg/dL <[address] [facility] Work Phone: Comment on above: The drugs N-Acetylcy steine and Metamizole may falsely depress this assay.Serum Triglycerides Reference Interval Normal <150 mg/dL Borderline high 150 - 199 mg/dL High 200 - 499 mg/dL Very High > or = 500 mg/dL Laboratory - Chemistry and C hemistry - challengeon 07-13-2022 ALP [Catalytic activity/Vol] 44 U/L 45-[address] [facility] Work Phone: ALT [Catalytic activity/Vol] 48 U/L 16-[address] [facility] Work Phone: CO2 [Moles/Vol] 28.0 mmol/L 21.0-32.[address] [facility] Work Phone: Free T4 [Mass/Vol] 1.29 ng/dL 0.76-1.46 [facility] Work Phone: Globulin (S) [Mass/Vol] 3.4 g/dL 2.2-4.[address] [facility] Work Phone: Urea nitrogen/Creatinine [Mass ratio] 14.1 mg/mg 10-[address] [facility] Work Phone: No Panel Informationon 07-13 Estimated GFR (MDRD) Amer 107 mL/min >[address] [facility] Work Phone: Comment on above: GFR Calc Estimated GFR (MDRD) Non-Af Amer 89 mL/min >[address] [facility] Work Phone: Comment on above: Non- GFR Calc Prostate Specific Antigen Screen 4.20 ng/mL 0.00-4.[address] [facility] Work Phone: Comment on above: This test was perfor med using the TPSA assay method for [employer] chemistry system. Values obtained with differentassay methods cannot be used interchangably.When changing PSA assays in the course of monitoring apatient, additional sequential testing should be carriedout to confirm baseline values. Thyroid Stimulating Hormone (TSH) 3.92 uIU/mL 0.358-3.[address] [facility] Work Phone: Serum or plasma albumin karrie urement (mass/volume)on 07-13-2022 Albumin [Mass/Vol] 3.7 g/dL 3.2-5.0 [facility] Work Phone: Serum or plasma albumin/glob ulin mass ratioon 07-13-2022 Albumin/Globulin [Mass ratio] 1.1 {ratio} 0.9-2.[address] [facility] Work Phone: Serum or plasma calcium karrie urement (mass/volume)on 07-13-2022 Calcium [Mass/Vol] 9.1 mg/dL 8.5-10.1 [facility] Work Phone: Serum or plasma cholesterol in HDL measurement (mass/volume)on 07-13-2022 Cholesterol in HDL [Mass/Vol] 47 mg/dL >[address] [facility] Work Phone: Comment on above: The drugs N-Acetylcy steine and Metamizole may falsely depress this assay. Reference Range HDL <40 mg/dL Low HDL Cholesterol HDL >or= 60 mg/dL High HDL Cholesterol Serum or plasma cholesterol in VLDL measurement (mass/volume)on 07-13-2022 Cholesterol in VLDL [Mass/Vol] 16 mg/dL 5-[address] [facility] Work Phone: Serum or plasma creatinine m easurement (mass/volume)on 07-13-2022 Creatinine [Mass/Vol] 0.92 mg/dL 0.70-1.30 [facility] Work Phone: Comment on above: The validity of the calculated GFR & GFRAA in patients over 70 years has not been determined. Clinical correlation is essential. Serum or plasma low density lipoprotein (LDL) cholesterol measurement (mass/volume)on 07-13-2022 Cholesterol in LDL [Mass/Vol] 126 mg/dL 0-[address] [facility] Work Phone: Serum or plasma urea nitroge n measurement (mass/volume)on 07-13-2022 Urea nitrogen [Mass/Vol] 13 mg/dL 7-[address] [facility] Work Phone: Thin prep Papanicolaou smear with manual screeningon 07-13-2022 Thin prep Papanicolaou smear with manual screening 23 U/L 15-[address] [facility] Work Phone: Thin prep Papanicolaou smear with manual screening 5 5-[address] [facility] Work Phone: Whole blood hemoglobin A1c/t otal hemoglobin ratio (mass fraction)on 07-13-2022 HbA1c (Bld) [Mass fraction] 5.6 % 3.8-5.[address] [facility] Work Phone: Comment on above: Normal < 5.7 % Predi abetic 5.7 - 6.4 % Diabetic >or= 6.5 % Please note range changes. Basophil percentageon 2021 Bilirubin [Mass/Vol] 0.70 mg/dL 0.20-1.00 [facility] Work Phone: Comment on above: For patients on eltr ombopag therapy, use of Dimension [place]ver[place] TBIL is not recommended. Chloride [Moles/Vol] 107 mmol/L 98-107 [facility] Work Phone: Cholesterol [Mass/Vol] 182 mg/dL <200 [facility] Work Phone: Comment on above: <200 mg/dL Desirable 200-240 mg/dL Borderline >240 mg/dL High Risk Glucose [Mass/Vol] 105 mg/dL 74-106 [facility] Work Phone: Comment on above: Fasting Glucose resu lt from 100 to 125 mg/dL suggests IMPAIRED HOMEOSTASIS per A.D.A. criteria. Potassium [Moles/Vol] 3.8 mmol/L 3.5-5.1 [facility] Work Phone: Protein [Mass/Vol] 7.1 g/dL 6.4-8.2 [facility] Work Phone: Sodium [Moles/Vol] 139 mmol/L 136-145 [facility] Work Phone: Triglyceride [Mass/Vol] 87 mg/dL [facility] Work Phone: Comment on above: The drugs N-Acetylcy steine and Metamizole may falsely depress this assay.Serum Triglycerides Reference Interval Normal <150 mg/dL Borderline high 150 - 199 mg/dL High 200 - 499 mg/dL Very High > or = 500 mg/dL Laboratory - Chemistry and C hemistry - challengeon 01-08-2022 ALP [Catalytic activity/Vol] 43 U/L 45-[address] [facility] Work Phone: ALT [Catalytic activity/Vol] 51 U/L 16-[address] [facility] Work Phone: CO2 [Moles/Vol] 27.0 mmol/L 21.0-32.[address] [facility] Work Phone: Globulin (S) [Mass/Vol] 3.3 g/dL 2.2-4.[address] [facility] Work Phone: Urea nitrogen/Creatinine [Mass ratio] 12.1 mg/mg 10-[address] [facility] Work Phone: No Panel Informationon 01-08 Estimated GFR (MDRD) Amer 110 mL/min >[address] [facility] Work Phone: Comment on above: GFR Calc Estimated GFR (MDRD) Non-Af Amer 91 mL/min >[address] [facility] Work Phone: Comment on above: Non- GFR Calc Serum or plasma albumin karrie urement (mass/volume)on 01-08-2022 Albumin [Mass/Vol] 3.8 g/dL 3.2-5.0 [facility] Work Phone: Serum or plasma albumin/glob ulin mass ratioon 01-08-2022 Albumin/Globulin [Mass ratio] 1.2 {ratio} 0.9-2.[address] [facility] Work Phone: Serum or plasma calcium karrie urement (mass/volume)on 01-08-2022 Calcium [Mass/Vol] 9.4 mg/dL 8.5-10.1 [facility] Work Phone: Serum or plasma cholesterol in HDL measurement (mass/volume)on 01-08-2022 Cholesterol in HDL [Mass/Vol] 43 mg/dL [facility] Work Phone: Comment on above: The drugs N-Acetylcy steine and Metamizole may falsely depress this assay. Reference Range HDL <40 mg/dL Low HDL Cholesterol HDL >or= 60 mg/dL High HDL Cholesterol Serum or plasma cholesterol in VLDL measurement (mass/volume)on 01-08-2022 Cholesterol in VLDL [Mass/Vol] 17 mg/dL 5-[address] [facility] Work Phone: Serum or plasma creatinine m easurement (mass/volume)on 01-08-2022 Creatinine [Mass/Vol] 0.91 mg/dL 0.70-1.30 [facility] Work Phone: Comment on above: The validity of the calculated GFR & GFRAA in patients over 70 years has not been determined. Clinical correlation is essential. Serum or plasma low density lipoprotein (LDL) cholesterol measurement (mass/volume)on 01-08-2022 Cholesterol in LDL [Mass/Vol] 122 mg/dL 0-[address] [facility] Work Phone: Serum or plasma urea nitroge n measurement (mass/volume)on 01-08-2022 Urea nitrogen [Mass/Vol] 11 mg/dL 7-[address] [facility] Work Phone: Thin prep Papanicolaou smear with manual screeningon 01-08-2022 Thin prep Papanicolaou smear with manual screening 29 U/L 15-[address] [facility] Work Phone: Thin prep Papanicolaou smear with manual screening 5 5-[address] [facility] Work Phone: Whole blood hemoglobin A1c/t otal hemoglobin ratio (mass fraction)on 01-08-2022 HbA1c (Bld) [Mass fraction] 5.6 % 3.8-5.[address] [facility] Work Phone: Comment on above: Normal < 5.7 % Predi abetic 5.7 - 6.4 % Diabetic >or= 6.5 % Please note range changes. Vital Signs Date Time Vital Sign Value Performing Clinician Faci lity 05-19-2023 04:40-0400 Body height 180.34 cm [facility] [place] 05-19-2023 04:40-0400 Body mass index (BMI) [Ratio] 37.9 kg/m2 [facility] 05-19-2023 04:40-0400 Body temperature 96.4 [degF] [facility] 05-19-2023 04:40-0400 Body weight 123.3 kg [facility] [place] 05-19-2023 04:40-0400 Diastolic blood pressure 86 mm[Hg] [facility] 05-19-2023 04:40-0400 Heart rate 62 /min [facility] [place] 05-19-2023 04:40-0400 Respiratory rate 16 /min [facility] 05-19-2023 04:40-0400 SaO2% (BldA) [Mass fraction] 97 % [facility] 05-19-2023 04:40-0400 Systolic blood pressure 171 mm[Hg] [facility] Encounters Encounter Date Encounter Type Care Provider Facility Start: 01-17-2025 End: 01-17-[address] Vj Hubbard MD Work Phone: [facility] Work Phone: Start: 01-17-2025 End: 01-17-[address] Lui Barkley MD -Laboratory Work Phone: Start: 01-17-2025 End: 01-17-2025 ambulatory Lui Barkley Facility:[facility] Start: 07-24-2024 End: 07-24-2024 ambulatory Vj Hubbard Facility:[facility] Start: 07-07-2023 End: 07-07-[address] [facility] Work Phone: Start: 07-07-2023 End: 07-07-2023 Patient encounter procedure [facility]-Laboratory Work Phone: Start: 06-15-2023 End: 06-15-[address] [facility] Work Phone: Start: 06-15-2023 End: 06-15-2023 Patient encounter procedure [facility]-Laboratory, Specimen Work Phone: Start: 06-01-2023 End: 06-01-[address] [facility] Work Phone: Start: 06-01-2023 End: 06-01-2023 Patient encounter procedure [facility]-Radiology, [facility] Work Phone: Start: 05-19-2023 End: 05-19-2023 Emergency department patient visit [facility]-Emergency Department Work Phone: Start: 01-06-2023 End: 01-06-[address] [facility] Work Phone: Start: 01-06-2023 End: 01-06-2023 Patient encounter procedure [facility]-Laboratory Start: 07-14-2022 End: 07-15-2022 ambulatory VJ HUBBARD MD Facility:B Start: 07-14-2022 End: 07-14-2022 Patient encounter procedure VJ HUBBARD MD [facility] Start: 07-13-2022 End: 07-13-[address] [facility] Work Phone: Start: 07-13-2022 End: 07-13-2022 Patient encounter procedure [facility]-Laboratory Start: 01-08-2022 End: 01-08-2022 Patient encounter procedure [facility]-Laboratory Procedures Date Procedure Procedure Detail Performing Clinician Start: 01-17-2025 Assay of prostate sp ecific antigen total Dr. Vj Hubbard MD Work Phone: Comment on above: This test was perfor med using the [employer] tPSA method. Measured values of a patient sample can vary depending on the testing procedure used. PSA values determined on patient samples by different testing procedures cannot be used interchangeably. If there is a change in PSA assays while monitoring therapy, sequential testing should be performed to confirm baseline values. Start: 06-01-2023 Diagnostic radiograp hy of abdomen Start: 05-19-2023 CT of abdomen and pe lvis without contrast Start: 04-07-2018 Total thyroidectomy WIN HUBBARD MD Start: 01-03-2018 Colonoscopy VJ OWENS MD Start: 09-06-2012 Colonoscopy VJ OWENS MD H/O: vasectomy Hx of vasectomy Total thyroidectomy VJ BENTLEY MD Plan of Treatment Date Care Activity Detail Author Patient Education ED Kidney Stone w/ Coli c [facility] Work Phone: Patient referral [facility] Work Phone: Immunizations Immunization Date Immunization Notes Care Provider Shena moise 07-14-2022 influenza, injectabl e, quadrivalent, contains preservative; Translations: [Fluarix PF Quadrivalent ] VJ HUBBARD MD [facility] 07-15-2020 influenza, injectabl e, quadrivalent, preservative free; Translations: [Fluarix PF Quadrivalent ] VJ HUBBARD MD [facility] 06-02-2019 influenza virus vaccine, unspecified formulation VJ HUBBARD MD [facility] 06-06-2018 influenza virus vaccine, unspecified formulation VJ HUBBARD MD [facility] 07-07-2017 Influenza virus vaccine W [facility] 07-06-2017 influenza virus vaccine, unspecified formulation VJ HUBBARD MD [facility] 05-14-2016 influenza virus vaccine, unspecified formulation VJ HUBBARD MD [facility] 05-07-2015 influenza virus vaccine, unspecified formulation VJ HUBBARD MD [facility] 07-23-2014 influenza virus vaccine, unspecified formulation VJ HUBBARD MD [facility] 07-12-2012 tetanus toxoid, redu malia diphtheria toxoid, and acellular pertussis vaccine, adsorbed VJ HUBBARD MD [facility] Payers Date Payer Category Payer Unknown [id number] [id number] 2024 Self-pay [id number] 2022 Unknown [id number] 1960 Unknown [id number] Unknown [id number] Unknown [id number] Social History Date Type Detail Facility Start: 04-18-2018 End: 05-19-2023 Tobacco smoking status NHIS Unknown if ever smoked [facility] Start: 1960 Sex Assigned At Male [facility] Start: 06-28-2019 End: 05-19-2023 Tobacco smoking status Ex-smoker (finding) [facility] Sex Assigned At Sex [facility] Medical Equipment Procedure Code Equipment Code Equipment Origin al Text Equipment Identifier Dates SUTURE,LIGA CLIP MED [id number] FDA Start: 04-07-2018 SUTURE,LIGA CLIP MED LT200 FDA Start: 04-07-2018 SUTURE,LIGA CLIP SM LT-100 FDA Start: 04-07-2018 SUTURE,LIGA CLIP SM LT-100 FDA Start: 04-07-2018 SUTURE,LIGA CLIP MED LT200 FDA Start: 04-07-2018 SUTURE,LIGA CLIP MED LT200 FDA Start: 04-07-2018 SUTURE,LIGA CLIP SM LT-100 FDA Start: 04-07-2018 SUTURE,LIGA CLIP SM LT-100 FDA Start: 04-07-2018 SUTURE,LIGA CLIP MED LT200 FDA Start: 04-07-2018 SUTURE,LIGA CLIP MED LT200 FDA Start: 04-07-2018 SUTURE,LIGA CLIP SM LT-100 FDA Start: 04-07-2018 SUTURE,LIGA CLIP SM LT-100 FDA Start: 04-07-2018 SUTURE,LIGA CLIP MED LT200 FDA Start: 04-07-2018 SUTURE,LIGA CLIP MED LT200 FDA Start: 04-07-2018 SUTURE,LIGA CLIP SM LT-100 FDA Start: 04-07-2018 SUTURE,LIGA CLIP SM LT-100 FDA Start: 04-07-2018 SUTURE,LIGA CLIP MED LT200 FDA Start: 04-07-2018 SUTURE,LIGA CLIP MED LT200 FDA Start: 04-07-2018 SUTURE,LIGA CLIP SM LT-100 FDA Start: 04-07-2018 SUTURE,LIGA CLIP SM LT-100 FDA Start: 04-07-2018 SUTURE,LIGA CLIP MED LT200 FDA Start: 04-07-2018 SUTURE,LIGA CLIP MED LT200 FDA Start: 04-07-2018 SUTURE,LIGA CLIP SM LT-100 FDA Start: 04-07-2018 SUTURE,LIGA CLIP SM LT-100 FDA Start: 04-07-2018 SUTURE,LIGA CLIP MED LT200 FDA Start: 04-07-2018 SUTURE,LIGA CLIP MED LT200 FDA Start: 04-07-2018 SUTURE,LIGA CLIP SM LT-100 FDA Start: 04-07-2018 SUTURE,LIGA CLIP SM LT-100 FDA Start: 04-07-2018 SUTURE,LIGA CLIP MED LT200 FDA Start: 04-07-2018 SUTURE,LIGA CLIP MED LT200 FDA Start: 04-07-2018 SUTURE,LIGA CLIP SM LT-100 FDA Start: 04-07-2018 SUTURE,LIGA CLIP SM LT-100 FDA Start: 04-07-2018 Evaluation + Plan note Laboratory Note Date & Type Note Facility Evaluation + Plan note Future Appointments Appointment Date:01/12/2023 02:00:00 PM Scheduled Provider:VJ HUBBARD MD Location:[facility] Appointment Type:PC OV Diagnostic Tests PendingPSA, Free 07/14/22 Future Scheduled TestsLipid Profile 01/11/23Complete Metabolic Panel 01/11/23 [facility] Evaluation note Note Date & Type Note Facility Evaluation note No assessment information availa [facility] Work Phone: Hospital course Narrative Note Date & Type Note Facility Hospital course Narrative No data available for this section [facility] Hospital Discharge instructions Note Date & Type Note Facility Hospital Discharge instructions No data available for this section [facility] Progress note Note Date & Type Note Facility Progress note No data available for this section [facility] Reason for referral (narrative) Note Date & Type Note Facility Reason for referral (narrative) No reason for referral information available [facility] Work Phone: Family History No Family History Records Found Relationship Condition Age at Onset Recorded Date/T victoria mother Hypertension Unknown Malignant neoplasm of breast Unknown father Cerebrovascular accident (CVA) Unknown Alzheimer's disease Unknown Advance Directives No Advanced Directives Records Found Advance Directive Response Recorded Date/ Time Living Will No April 07, 2018 11:18am Power of Investigator Fraud No April 07 11:18am Advance Directive Response Recorded Date/ Time Living Will No April 07, 2018 10:18am Power of Investigator Fraud No April 07 10:18am Advance Directive Response Recorded Date/ Time Living Will No May 19, 2023 4:43am Power of Investigator Fraud No May 4:43am Advance Directive Response Recorded Date/ Time Living Will No May 19, 2023 3:43am Power of Investigator Fraud No May 3:43am Summary Purpose Chief Complaint and Reason for Visit Chief Complaint 2 ORDERING DOCTORS Chief Complaint ABD PAIN Chief Complaint ABD PAIN Calculus of ureter Chief Complaint ABD PAIN Calculus of ureter 2 DRS/ 2 ORDERS Additional Source Comments Goals (unrecognized section and content) Goals may be documented in a n alternate section No data available for this sectionGoals may be documented in an alternate sectionGoals may be documented in an alternate sectionGoals may be documented in an alternate sectionGoals may be documented in an alternate sectionGoals may be documented in an alternate sectionGoals may be documented in an alternate sectionGoals may be documented in an alternate section (unrecognized sect ion and content) No Status Records FoundNo Status Records Found INFORMATION SOURCE (unrecogn ized section and content) DATE CREATED AUTHOR 07/15/2022 [facility] ([place]) DATE CREATED AUTHOR AUTHOR'S ORGANIZ ATION 01/31/2025 [facility] Care Team (unrecognized sect ion and content) Care Team Personnel Name: VJ HUBBARD MD Position: P4 Physician - Primary Care Member Role: Primary Care Physician Address: Address: [address] [place] [address] Phys[place], [place] [id number] [place] [address] Care Team Related Persons Name: NONE, Care Teams (unrecognized sec tion and content) Team Status: Active Member Role Status Dates Dr. Vj Hubbard MD Family Provider Active Dr. Vj Hubbard MD Primary Care Provider Active Team Status: Inactive Member Role Status Dates Dr. Vj Hubbard MD Primary Care Provider Active Melissa Abernathy NP-Breana Attending Provider, [facility] Active Team Status: Inactive Member Role Status Dates Dr. Vj Hubbard MD Primary Care Provider Active Dr. Radha Logan MD Emergency Provider Active Team Status: Inactive Member Role Status Dates Dr. Vj Hubbard MD Primary Care Provider Active Dr. Radha Logan MD Attending Provider, Emergency Provider Active Team Status: Inactive Member Role Status Dates Dr. Vj Hubbard MD Primary Care Provider Active Dr. Lui Barkley MD Attending Provider, Referr ing Provider Active Team Status: Inactive Member Role Status Dates Dr. Vj Hubbard MD Primary Care Prov ider, Attending Provider, Referring Provider Active Dr. Lui Barkley MD Other Provider Active Team Status: Active Member Role Status Dates Dr. Vj Hubbard MD Primary Care Provider Active Team Status: Inactive Member Role Status Dates Dr. Vj Hubbard MD Primary Care Provider Active Start: January 17, 2025 End: January 17, 2025 Dr. Lui Barkley MD Attending Provider Active Start: January 17, 2025 End: January 17, 2025 Dr. Lui Barkley MD Referring Provider Active Start: January 17, 2025 End: January 17, 2025 FOR RECORDS PERTAINING TO PATIENTS WHO ARE OR HAVE BEEN ENROLLED IN A CHEMICAL DEPENDENCY/SUBSTANCEABUSE PROGRAM, SOME INFORMATION MAY BE OMITTED. This clinical summary was aggregated from multiple sources. Caution should be exercised in using it in the provision of clinical care. This summary normalizes information from multiple sources, and as a consequence, information in this document may materially change the coding, format and clinical context of patient data. In addition, data may be omitted in some cases. CLINICAL DECISIONS SHOULD BE BASED ON THE PRIMARY CLINICAL RECORDS. [employer] provides no warranty or guarantee of the accuracy or completeness of information in this document.
[2025-08-03 13:21] LABS: AST(SGOT) 28 U/L (<=37); Alanine Aminotransfer ALT/SGPT 36 U/L (<=46); Albumin, Serum 4.2 g/dL (3.4-4.8); Alkaline Phosphatase 43 U/L (40-129); Anion Gap 10 (5-15); BUN 12 mg/dL (4-19); BUN/Creat Ratio 12.4 RATIO (10-20); Calcium,Total 9.6 mg/dL (7.6-11.0); Carbon Dioxide 25.7 mmol/L (21.0-32.0); Chloride 102 mmol/L (98-108); Cholesterol 179 mg/dL (<=200); Free T3 2.8 pg/mL (2.18-3.98); Globulin 2.7 g/dL (2.2-4.2); Glucose 111 mg/dL (70-99); Low Density Lipoprotein Calc. 118 mg/dL; Potassium 3.9 mmol/L (3.3-5.1); Triglycerides 79 mg/dL; Very Low Density Lipoprotein 16 mg/dL (5-40); cholesterol:hdl ratio screen 3.83
== END | disposition home or self-care (01) ==
LOC: LAB 12:18
PROVIDERS: PCP Family Medicine; Referring Provider Family Medicine; Visit Provider Family Medicine
DX: I10 Essential (primary) hypertension (principal); E03.9 Hypothyroidism, unspecified; E78.2 Mixed hyperlipidemia; N52.9 Male erectile dysfunction, unspecified; N40.1 Benign prostatic hyperplasia with lower urinary tract symptoms
CPT/HCPCS: 36415; 80053; 80061; 83036; 84439; 84443; 84481